=== PATIENT | male | born 1935 | race African-American/Black ===

== ENCOUNTER 2019-12-04 21:13 | Inpatient (IN) | payer OTHER, SELFPAY ==
[2019-12-04] VITALS (13 sets, daily range): BP systolic 66–117; BP diastolic 56–75; PULSE 103–138; RESP 16–33; TEMP 36.8–37.7; O2SAT 86–100
--- NOTE | ~2019-12-04 | XR_ITS ---
XR chest ET placement 12/04/2019 23:50 Indication: Shortness of breath. Endotracheal tube placement. Procedure: AP portable chest Comparison: 12/04/2019 Findings: Endotracheal tube tip 4.7 cm above the steffi. Right IJ central line tip in the SVC. Bibasi lar airspace disease, compatible with pneumonia. No pleural effusion or pneumothorax. Impression: 1: Persistent unchanged bibasilar airspace disease, compatible with pneumonia, right greater than lef t. Reviewed, dictated and finalized at location A. Impression: 1: Persistent unchanged bibasilar airspace disease, compatible with pneumonia, right greater than left.
--- NOTE | ~2019-12-04 | XR_ITS ---
EXAMINATION: XR chest 1V portable INDICATION: Acute respiratory failure, pneumonia TECHNIQUE: Portable AP chest at 0516 hours COMPARISON: 12/08/2019 FINDINGS: Endotracheal tube is approximately 4.2 cm above the steffi. A right internal jugular centra l venous catheter ends with its tip at the superior cavoatrial junction. Airspace opacities of the lo wer lung zones are slightly improved. There are stable airspace opacities of the right midlung zone. A small right pleural effusion is present. There is no pneumothorax. The cardiomediastinal silhouette is normal. IMPRESSION: 1. Stable airspace opacities of the right midlung zone and improving bibasilar airspace opacities, co nsistent with pneumonia. 2. Small right pleural effusion, stable. Reviewed, dictated and finalized at location A. IMPRESSION: 1. Stable airspace opacities of the right midlung zone and improving bibasilar airspace opacities, consistent with pneumonia. 2. Small right pleural effusion, stable.
--- NOTE | ~2019-12-04 | XR_ITS ---
EXAMINATION: XR chest 1V portable DATE: 12/08/2019 05:55 INDICATION: Pneumonia. Acute respiratory failure. TECHNIQUE: frontal view of the chest was obtained. COMPARISON: Chest radiograph dated 12/07/2019 FINDINGS: Endotracheal tube tip 4.8 cm above the steffi. Right internal jugular central venous catheter with di stal tip near the superior cavoatrial junction. Slight interval increase in opacities in the right mid to lower and left lower lung zones. Mild incre ase in a small right pleural effusion. No definitive left pleural effusion. Calcified nodules in righ t upper lung zone consistent with old granulomatous disease. No pneumothorax. Cardiomediastinal silho uette is normal. IMPRESSION: 1. Slight increase in lung disease in the right mid to lower and left lower lung zones consistent wit h pneumonia. 2. Slight increase in a small right pleural effusion. Reviewed, dictated and finalized at location A. IMPRESSION: 1. Slight increase in lung disease in the right mid to lower and left lower erika g zones consistent with pneumonia. 2. Slight increase in a small right pleural effusion.
--- NOTE | ~2019-12-04 | US_ITS ---
EXAMINATION: US arterial duplex LE DATE: 12/06/2019 15:00 INDICATION: Peripheral arterial disease. TECHNIQUE: Multiple grayscale and Doppler ultrasound images of the lower extremity arteries were obta ined. COMPARISON: None FINDINGS: Peak systolic velocities are 57 cm/s in right common femoral artery, 101 cm/s in the deep f emoral artery, 138 cm/s in proximal superficial femoral artery, 47 cm/s in mid superficial femoral ar [place], 50 cm/s in distal superficial femoral artery, 42 cm/s in popliteal artery, 43 cm/s in peroneal artery, 20 cm/s in posterior tibial artery, 20 cm/s in anterior tibial artery, and 18 cm/s in dorsali s pedis. Peak systolic velocities are 83 cm/s in left common femoral artery, 16 cm/s in the deep femoral arter y, 29 cm/s in proximal superficial femoral artery, 15 cm/s in mid superficial femoral artery, 14 cm/s in distal superficial femoral artery, 8 cm/s in popliteal artery, and 17 cm/s in peroneal artery. Th ere is no detectable flow in left posterior tibial artery, anterior tibial artery, and dorsalis pedis . IMPRESSION: 1. Increased pressure gradients in the superficial femoral arteries, consistent with arterial occlusi ve disease. No detectable flow in left posterior tibial artery, anterior tibial artery, and dorsalis pedis. Reviewed, dictated and finalized at location B. IMPRESSION: 1. Increased pressure gradients in the superficial femoral arteries, consistent with arterial occlusive disease. No detectable flow in left posterior tibial a rtery, anterior tibial artery, and dorsalis pedis.
--- NOTE | ~2019-12-04 | XR_ITS ---
EXAMINATION: XR chest 1V portable DATE: 12/07/2019 06:39 INDICATION: Pneumonia. Acute respiratory failure. TECHNIQUE: frontal view of the chest was obtained. COMPARISON: Chest radiograph dated 12/06/2019 FINDINGS: Persistent patchy airspace opacities in the right mid and lower lung zones. Improvement in opacities in the medial right lower lung zone. Small right pleural effusion. Bilateral skin folds project over the lungs. No pneumothorax. The cardiomediastinal silhouette is normal. IMPRESSION: 1. Opacities in the right mid to lower and left lower lung zones consistent with pneumonia with impro vement at the left lower lung zone. Line 2. Small right pleural effusion. Reviewed, dictated and finalized at location A. IMPRESSION: 1. Opacities in the right mid to lower and left lower lung zones consistent wit h pneumonia with improvement at the left lower lung zone. Line 2. Small right pleural effusion.
--- NOTE | ~2019-12-04 | XR_ITS ---
EXAMINATION: XR chest 1V portable EXAM DATE: 12/06/2019 08:30 INDICATION: Respiratory failure. Pneumonia. TECHNIQUE: Portable AP frontal chest x-ray was obtained. Comparison is made to prior examination from 10/03. FINDINGS: Endotracheal tube tip is 4-5 centimeters above the steffi (ideal range is between 2 to 5 cm ). There is a right-sided IJ venous line. There is extensive right lower lung zone, moderate left lower lung zone patchy ill-defined acute airs pace disease most consistent with infection, pneumonia. There are no sizable pleural effusions. Th ere is no pneumothorax suspected. Cardiomediastinal silhouette is normal. The bones and soft tissu es are unremarkable. There is no significant interval change compared to prior exam. IMPRESSION: 1. Line(s) and tube(s) in position. 2. Patchy bibasilar infection/pneumonia. Reviewed, dictated and finalized at location A.
--- NOTE | ~2019-12-04 | XR_ITS ---
XR chest port-a-cath/central 12/04/2019 22:08 Indication: Central line placement Procedure: AP portable chest Comparison: No prior studies for comparison. Findings: There is bibasilar airspace disease, compatible with pneumonia, right greater than left. Th e lungs are hyperinflated which is consistent with, but not diagnostic of chronic obstructive pulmona ry disease. Right IJ central line tip in the condyle aspect of the SVC. No pleural effusion or pneumo thorax. Acute osseous abnormality. Heart size is normal. No edema. Impression: 1: Bibasilar airspace disease, compatible with pneumonia. Reviewed, dictated and finalized at location A. Impression: 1: Bibasilar airspace disease, compatible with pneumonia.
--- NOTE | ~2019-12-04 | CT_ITS ---
EXAMINATION: CT brain wo con DATE: 12/08/2019 13:05 INDICATION: Mental status change TECHNIQUE: Computed tomography (CT) of the head was performed without intravenous contrast. Sagittal and coronal reconstructions were performed. The mA was adjusted according to patient size. Iterative reconstruction technique was employed. The dose-length product was 681.00 mGy-cm. COMPARISON: None FINDINGS: Encephalomalacia in the left occipital lobe with associated expected dilation of the occipital horn o f the left lateral ventricle consistent with chronic infarct. No acute intracranial hemorrhage, acute infarction or abnormal extra axial fluid collection. There is severe scattered white matter hypoatte nuation consistent with chronic small vessel ischemic disease. Symmetric prominence of the sulci and ventricles consistent with moderate age-appropriate diffuse cerebral volume loss. No mass/mass effec t. Changes of left intraocular lens replacement. Nonspecific increased density within the left globe. No inflammatory stranding within the surrounding orbital fat. Calcified drusen at the left optic dis cs. Mild mucosal thickening the left maxillary and bilateral ethmoid sinuses. Bilateral mastoid effus ions. Middle ear cavities are clear. Intracranial calcified cerebral atherosclerosis is noted. IMPRESSION: 1. No acute intracranial process. 2. Chronic left occipital lobe infarct. 3. Age-related changes including moderate diffuse volume loss and severe scattered white matter hypoa ttenuation consistent with chronic small vessel ischemic disease. 4. Nonspecific increased density within the left globe. Correlate with ophthalmic history. Reviewed, dictated and finalized at location A. IMPRESSION: 1. No acute intracranial process. 2. Chronic left occipital lobe infarct. 3. Age-related changes including moderate diffuse volume loss and severe scatte red white matter hypoattenuation consistent with chronic small vessel ischemic disease. 4. Nonspecific increased density within the left globe. Correlate with ophthalm ic history.
--- NOTE | ~2019-12-04 | US_ITS ---
EXAMINATION: US renal BI DATE: 12/05/2019 12:50 INDICATION: Acute renal injury. TECHNIQUE: Multiple ultrasound grayscale images of the kidneys were obtained. COMPARISON: None. FINDINGS: The right kidney measures 10.3 x 4.5 x 4.4 cm. 6.0 x 4.9 x 5.5 cm cyst at the upper pole of the right kidney. No hydronephrosis or stones identified in the right kidney. The majority of the left kidney is obscured by shadowing bowel gas. Small portion of the central left kidney can be visualized betwee n the shadowing bowel on the cine images with no evident hydronephrosis. The bladder is normal. IMPRESSION: 1. No hydronephrosis in the right kidney or visualized central portion of the largely obscured left kidney. 2. 6.0 cm right renal cyst. Reviewed, dictated and finalized at location A.
--- NOTE | ~2019-12-04 | XR_ITS ---
EXAMINATION: XR foot LT 2V DATE: 12/05/2019 13:37 INDICATION: Left heel ulcer. TECHNIQUE: 2 views of left foot were obtained. COMPARISON: None. FINDINGS: Bone alignment is normal. No fracture. There is diffuse osteopenia. There is mild osteoarth ritis of first metatarsophalangeal joint and some of the interphalangeal joints. There are enthesophy andrea at the posterior and plantar aspects of calcaneal tuberosity. There is an ulcer posterior to calc aneal tuberosity. IMPRESSION: 1. No specific evidence of osteomyelitis. Reviewed, dictated and finalized at location B.
--- NOTE | 2019-12-04 21:22 | ECG_ITS ---
Measurements Intervals [place] Rate: 136 P: 66 NM: 135 QRS: -10 QRSD: 86 T: 62 QT: 298 QTc: 448 Interpretive Statements SINUS TACHYCARDIA BASELINE WANDER- I, II, AVF, V1-V6 ABNORMAL ECG Electronically Signed On 12-05-2019 7:26:41 CDT by Chris Kaur D.O.
--- NOTE | 2019-12-04 21:36 | PC.NURSE ---
Unable to obtain IV access. DEBBIE Dwyer notified. DEBBIE Dwyer in room at this time for central line placement. Consent given by patient's son who is POA.
--- NOTE | 2019-12-04 21:44 | PCRCNOTE ---
CALLED TO ED 8 FOR PT IN RESPIRATORY DISTRESS. EMS ASSISTING WITH PT RESPIRATIONS VIA BVM. PT PLACED ON NRB WITH SPO2 91%. ABG ORDERED BUT WILL BE DELAYED DUE TO CENTRAL LINE PLACEMENT.
[2019-12-04] MEDS: SODIUM CHLORIDE 0.9% IV 2,000 ML 999 ML (21:45)
[2019-12-04] MEDS: NOREPINEPHRINE 8 MG/D5W 250 ML 8 MG/250 ML BAG 18.8 MG IV CONT (21:50)
--- NOTE | 2019-12-04 21:55 | PC.NURSE ---
Per EDRad Dwyer, begin Levophed at 10mcg/min.
--- NOTE | 2019-12-04 21:59 | ED.SOB ---
HPI - SOB/Dyspnea General Chief Complaint: Shortness of Breath/Dyspnea Stated Complaint: respiratory distress Time Seen by Provider: 12/04/19 21:22 History of Present Illness HPI Narrative: Patient is an 84-year-old male who presents the ER with decreased mental status and hypoxia from his long term. Patient was COVID swab 1 week ago and it was negative. He was found to be febrile this evening. EMS bagging patient in route. Upon arrival patient breathing on his own and moving his right side spontaneously. Patient has previous history of CVA. I have contacted patient's POA his son, he would like everything done including intubation if needed, CPR, and central line placement. At baseline patient can converse with others and follow commands but he is much more somnolent this evening. Related Data Home Medications Medication Instructions Recorded Confirmed aspirin [Aspir-81] 81 mg FEEDING TUBE DAILY 12/05/19 12/05/19 chlorhexidine gluconate 15 ml MUCOUS MEMBRANE BID 12/05/19 12/05/19 docusate sodium 50 mg PO DAILY 12/05/19 12/05/19 metoprolol tartrate 25 mg FEEDING TUBE DAILY 12/05/19 12/05/19 ldrdibev-gvy-amyzniq gluconate 15 ml FEEDING TUBE DAILY 12/05/19 12/05/19 [Centrum] nystatin 5 ml PO QID 12/05/19 12/05/19 pantoprazole [Protonix] 40 mg FEEDING TUBE DAILY 12/05/19 12/05/19 polyethylene glycol 3350 17 g FEEDING TUBE DAILY 12/05/19 12/05/19 pravastatin 10 mg FEEDING TUBE DAILY 12/05/19 12/05/19 sennosides [Senna Lax] 8.6 mg FEEDING TUBE BID 12/05/19 12/05/19 thiamine HCl (vitamin B1) 100 mg FEEDING TUBE DAILY 12/05/19 12/05/19 Allergies Allergy/AdvReac Type Severity Reaction Status Date / Time No Known Allergies Allergy Verified 12/04/19 22:51 Review of Systems Review of Systems: ROS unobtainable: Yes unobtainable due to medical condition [facility] Past Medical History Medical History (Updated 12/05/19 @ 03:29 by Thor Dwyer MD) Atrial fibrillation CVA (cerebral vascular accident) Dysphagia Essential hypertension GERD without esophagitis Hyperlipidemia Peripheral vascular disease with limb ischemia but this was managed without surgical intervention Severe protein-calorie malnutrition Surgical History Surgical History (Updated 12/05/19 @ 01:42 by Licha Virk DO) History of left hip hemiarthroplasty Family History Family History Other Unknown family medical history Social History Social History (Updated 12/05/19 @ 01:45 by Licha Virk DO) Smoking status: Unknown if ever smoked Alcohol intake: never Substance use: never Living arrangements: long term Additional living arrangements comments: patient is currently residing had [facility]. Gender identity (if verbalized by the patient): Male Spiritual care concerns: No Exam Narrative: Exam Narrative: GENERAL: ill-appearing, well-nourished, and in moderate distress. HEAD: Normocephalic, atraumatic. EYES: EOMI, Scarred left pupil, reactive right pupil. ENT: Dry mucous membrane. CHEST: Diminished throughout and tachypneic. HEART: Tachycardic and regular. Thready peripheral pulses. ABDOMEN: Soft, nontender, nondistended. EXTREMITIES: Profound weakness on the left side compared to the right. No edema. SKIN: Warm, dry, no rash. NEURO: Awake and alert, localizes to pain. Course Reevaluation(s) Reevaluation #1: Central line placed. Will aggressively hydrate. Date: 12/04/19 Time: 22:00 Reevaluation #2: O2 sat trending down. Decision made to intubate as pt still on NRB at 100%. Accepted to ICU by Dr. Trotter. Pt received rocephin and azithromycin. New low BP at 74/53 mmHg after intubation. If it remains low we will add vasopressin to the levophed already running. Date: 12/04/19 Time: 23:46 Reevaluation #3: Admit to ICU. Patient responding well to addition of vasopressin and IV sodium bicarb. D/c propofol due to low pressures and switch to verded
[2019-12-04 22:20] LABS: Alveolar/Arterial O2 Gradient 620.1 mmHg; Base Excess ABG -13.4 mEq/l (+/-2.0); Carboxyhemoglobin 0.2 % THb (0-2.0); Fractional Inspired Oxygen 100 %; HCO3 ABG 11.1 mEq/l (22.0-26.0); Methemoglobin ABG 0.4 %THb (0-1.5); Oxygen Content ABG 16.6 %vol (16.0-22.0); Oxygen Saturation ABG 89.8 % (95.0-100.0); Oxyhemoglobin 88.5 % THb (90.0-100.0); PO2 ABG 61.6 mmHg (80.0-100.0); PO2 FiO2 Ratio Arterial Blood 0.62 %; Reduced Hemoglobin 10.9 %THb (0-5.0); Total Hemoglobin 13.3 g/dL (12.0-18.0)
[2019-12-04 22:21] LABS: Device NON-REBREATHER MASK; PCO2 ABG 23.2 mmHg (35.0-45.0); Site Drawn RIGHT BRACHIAL; pH ABG 7.298 (7.350-7.450)
[2019-12-04 22:29] LABS: Hematocrit 40.1 % (42.0-52.0); Hemoglobin 12.5 g/dL (14.0-18.0); Mean Corpuscular HGB Conc 31.2 g/dl (32-36); Mean Corpuscular Hemoglobin 27.4 pg (26-34); Mean Corpuscular Volume 87.9 fl (80-100); Mean Platelet Volume 9.8 fl (7.4-10.4); Platelet Count Result 423 k/mm3 (150-375); Red Blood Count 4.56 M/mm3 (4.6-6.20); Red Cell Distribution Width 16.4 % (11.5-14.5); White Blood Count 4.3 K/mm3 (4.5-10.0)
[2019-12-04 22:43] LABS: INR 1.5; Partial Thromboplastin Time 28.6 SECONDS (22.3-36.8); Prothrombin Time 17.3 Seconds (11.1-14.7)
[2019-12-04 22:44] LABS: Anion Gap 20 mmol/L (8-16); Blood Urea Nitrogen 51 mg/dL (9-20); CRP 7.7 mg/dL (<1.0); Calcium 9.3 mg/dL (8.4-10.2); Carbon Dioxide 15 mmol/L (22-30); Chloride 106 mmol/L (98-107); Estimated Glomerular Filt Rate 27; Glucose 91 mg/dL (75-110); Potassium 4.2 mmol/L (3.4-5.0); Sodium 141 mmol/L (137-145)
[2019-12-04 22:46] LABS: Lactic Acid Reflex 10.6 mmol/L (0.7-2.1)
--- NOTE | 2019-12-04 22:49 | PC.NURSE ---
Patient now beginning to have urine output in osorio catheter.
[2019-12-04 22:50] LABS: NT Pro B Type Natriuretic Pept 4010 PG/ML (5-100)
[2019-12-04 22:52] LABS: Band Neutrophils Percent 29 % (0-6); Lymphocytes Absolute Manual 0.47 K/mm3 (1.1-4.5); Monocytes Percent Manual 14 % (3-9); Neutrophils Absolute Manual 3.22 K/mm3 (1.3-6.7); Neutrophils Percent Manual 46 % (46-73); Total Cells Counted 100
[2019-12-04 22:53] LABS: Anisocytosis 2+ (NORMAL)
[2019-12-04] MEDS: SODIUM CHLORIDE 0.9% IV 500 ML 999 ML (22:53)
--- NOTE | 2019-12-04 22:55 | PC.NURSE ---
Patient given 2.4L NS bolus.
--- NOTE | 2019-12-04 23:32 | PC.NURSE ---
Patient began to weaned down from O2 per EDP Reymundo verbal order read-back. Patient was 95% on 10L via non-rebreather. Patient's O2 dropped to 70%. Patient having difficulty clearing secretions. EDP Reymundo notified. EDP in room at this for intubation.
--- NOTE | 2019-12-04 23:35 | PC.NURSE ---
Per EDP Reymundo give 100mg succinylcholine and 30mg Etomidate IVP for intubation. 2336 - good color change, equal rise and fall of chest, 26 at the lip. Size 7.5 ETT used.
[2019-12-04 23:38] LABS: Add Urine Microscopic? YES; Appearance Urine Cloudy (Clear); Bacteria Urine Trace /hpf; Bilirubin Urine Negative (Negative); Blood Urine 3+ (Negative); Color Urine Amber (Yellow); Glucose Urine UA Negative (Negative); Hyaline Casts Urine 50+ /lpf; Ketones Urine Negative (Negative); Leukocyte Esterase Ur Negative LEU/UL (Negative); Mucus Urine Moderate /lpf; Nitrate Urine Negative (Negative); Protein Urine 2+ mg/dL (Negative); RBC Urine >75 /hpf (0-2); Specific Grav Ur 1.018 (1.001-1.035); Squamous Epithelial Cell Urine Moderate /hpf (Few)
[2019-12-04] MEDS: PROPOFOL IV EMULSION 100 ML 2.4 MG IV CONT (23:40)
[2019-12-05] VITALS (64 sets, daily range): BP systolic 72–158; BP diastolic 49–94; PULSE 79–198; RESP 15–22; TEMP 35.9–39.4; O2SAT 92–100; BMI 19.2
--- NOTE | 2019-12-05 00:05 | PM.IMHP ---
H&P: HPI History of Present Illness Date/Time: 12/05/19 00:05 Chief complaint: Hypoxia, fever, altered mental status Narrative: Patient was seen and examined in the ER. Conrado Batres is a 84 year old maleWith a past medical history of CVA, dysphagia, atrial fibrillation and essential hypertension who presented to the ER from [facility] with respiratory distress and altered mental status. Nursing staff went for routine rounds and found the patient with oxygen saturations of 60% on room air. The patient was being bagged in route to the ER. The patient was only responding to painful stimuli. Patient's temperature was a 103? on EMS evaluation. The patient's blood pressure on arrival to the ER was 66/56. A central line was placed by ER staff. Patient was initiated on pressor therapy at the time of my evaluation the patient was on Levophed at 15 and blood pressures were in the low 70s. Instructed the ER nurse to increase the Levophed to 30 and the patient had just been started on vasopressin at 0.02 which was increased to 0.04. Repeat ABG was performed which demonstrated worsening metabolic acidosis. I ordered 2 amps of sodium bicarb. After these measures the patient's repeat blood pressure was in the 160 systolic in the patient's heart rate had improved from the 1 teens to 120s down to 100. The patient's Levophed was decreased down to 25 at patient's repeat blood pressure was in the 150 systolic. The patient is evidently at [facility] for acute rehab following a syncopal episode resulting in fall, rhabdomyolysis and left femoral neck fracture. The patient was admitted [facility] 10/09/2019. The patient had COVID-19 testing 1 week ago at the assisted that was negative. Source of information is assisted records and ER records. Review of Systems Review of Systems: ROS unobtainable: Yes unobtainable due to endotracheal tube PMFSH Past Medical History Medical History (Updated 12/05/19 @ 01:59 by Licha Virk DO) Atrial fibrillation CVA (cerebral vascular accident) Dysphagia Essential hypertension GERD without esophagitis Hyperlipidemia Peripheral vascular disease with limb ischemia but this was managed without surgical intervention Severe protein-calorie malnutrition Surgical History Surgical History (Updated 12/05/19 @ 01:42 by Licha Virk DO) History of left hip hemiarthroplasty Family History Family History Other Unknown family medical history Social History Social History (Updated 12/05/19 @ 01:45 by Licha Virk DO) Smoking status: Unknown if ever smoked Alcohol intake: unknown Substance use: unknown Living arrangements: assisted Additional living arrangements comments: patient is currently residing had [facility]. Meds Home Medications and Allergies Allergies Allergy/AdvReac Type Severity Reaction Status Date / Time No Known Allergies Allergy Verified 12/04/19 22:51 Vital Signs Vital Signs - 24 hr 12/04/19 21:12 12/04/19 21:33 12/04/19 21:45 Temperature 98.3 F Pulse Rate 134 H 129 H Respiratory Rate 31 H 33 H Blood Pressure 78/68 L 66/56 L Pulse Oximetry 91 89 L 87 L 12/04/19 21:50 12/04/19 22:20 12/04/19 22:30 Temperature 99.9 F H Pulse Rate 135 H 129 H 125 H Respiratory Rate 33 H 32 H Blood Pressure 76/60 L 85/67 L 117/75 Pulse Oximetry 86 L 97 12/04/19 23:02 12/04/19 23:12 12/04/19 23:38 Temperature Pulse Rate 113 H 103 H Respiratory Rate 16 20 Blood Pressure 112/73 93/68 L Pulse Oximetry 100 95 100 12/04/19 23:51 12/04/19 23:59 Temperature Pulse Rate 103 H 103 H Respiratory Rate 21 H Blood Pressure 75/57 L Pulse Oximetry 96 94 Exam Narrative: Exam Narrative: PHYSICAL EXAM: WEIGHT BMI General: acutely ill-appearing, frail, cachectic HEENT: mucous membranes are dry, ET tube present, teeth are bro
[2019-12-05] MEDS: VASOPRESSIN INJ 100 UNITS in DEXTROSE 5% 95 ML IV CONT ×2 (00:10→07:30)
[2019-12-05 00:27] LABS: Base Excess ABG -14.8 mEq/l (+/-2.0); Carboxyhemoglobin 0.3 % THb (0-2.0); Fractional Inspired Oxygen 100 %; HCO3 ABG 11.7 mEq/l (22.0-26.0); Methemoglobin ABG 0.6 %THb (0-1.5); Oxygen Content ABG 15.6 %vol (16.0-22.0); Oxygen Saturation ABG 97.5 % (95.0-100.0); Oxyhemoglobin 96.1 % THb (90.0-100.0); PCO2 ABG 29.4 mmHg (35.0-45.0); PO2 ABG 116.2 mmHg (80.0-100.0); PO2 FiO2 Ratio Arterial Blood 1.16 %; Total Hemoglobin 11.4 g/dL (12.0-18.0)
[2019-12-05 00:29] LABS: Arterial Blood Gas PEEP 5 cmH2O; Arterial Blood Gas Vent Mode CMV; Arterial Blood Gas Ventilator rate 18 /MIN; Device VENTILATOR; Site Drawn RIGHT BRACHIAL; pH ABG 7.216 (7.350-7.450)
[2019-12-05 00:30] LABS: Arterial Blood Gas Tidal Volume 400 ml
[2019-12-05] MEDS: SODIUM BICARBONATE 8.4% 50 MEQ/50 ML VIAL IV PUSH ×2 (00:39)
--- NOTE | 2019-12-05 00:43 | PC.NURSE ---
Correction on Vasopressin titration: dose increased to 2.4mL/hr, not 24mL/hr.
--- NOTE | 2019-12-05 00:45 | PC.NURSE ---
Per Dr. Virk via verbal order read back, increase Levophed dose to 30mcg/min.
[2019-12-05 01:26] LABS: Reflex Lactic Acid Yes or No Add Lactic
[2019-12-05 02:34] LABS: Hematocrit 34.9 % (42.0-52.0); Hemoglobin 10.9 g/dL (14.0-18.0); Mean Corpuscular HGB Conc 31.2 g/dl (32-36); Mean Corpuscular Hemoglobin 27.1 pg (26-34); Mean Corpuscular Volume 86.8 fl (80-100); Mean Platelet Volume 9.4 fl (7.4-10.4); Platelet Count Result 342 k/mm3 (150-375); Red Blood Count 4.02 M/mm3 (4.6-6.20); Red Cell Distribution Width 16.2 % (11.5-14.5)
[2019-12-05 02:59] LABS: Lactic Acid 6.9 mmol/L (0.7-2.1)
[2019-12-05 03:00] LABS: Alanine Aminotransferase 49 U/L (4-50); Albumin Level 2.9 g/dL (3.5-5.1); Alkaline Phosphatase 104 U/L (38-126); Anion Gap 16 mmol/L (8-16); Aspartate Amino Transferase 89 U/L (17-59); Bilirubin,Total 0.4 mg/dL (0.2-1.3); Blood Urea Nitrogen 50 mg/dL (9-20); Calcium 7.7 mg/dL (8.4-10.2); Carbon Dioxide 19 mmol/L (22-30); Chloride 107 mmol/L (98-107); Estimated CRCL calculation 20 ml/min; Estimated Glomerular Filt Rate 37; Glucose 126 mg/dL (75-110); Potassium 3.7 mmol/L (3.4-5.0); Sodium 142 mmol/L (137-145)
[2019-12-05] MEDS: SODIUM CHLORIDE 0.9% IV 1,000 ML 125 ML IV CONT (03:09)
[2019-12-05 03:37] LABS: Anisocytosis 1+ (NORMAL); Band Neutrophils Percent 10 % (0-6); Lymphocytes Absolute Manual 0.36 K/mm3 (1.1-4.5); Monocytes Absolute Manual 0.16 K/mm3 (0.1-0.90); Monocytes Percent Manual 4 % (3-9); Neutrophils Absolute Manual 3.48 K/mm3 (1.3-6.7); Neutrophils Percent Manual 77 % (46-73); Platelet Estimate Adequate (Adequate); Total Cells Counted 100
[2019-12-05 04:26] LABS: Base Excess ABG -8.9 mEq/l (+/-2.0); Carboxyhemoglobin 0.2 % THb (0-2.0); Fractional Inspired Oxygen 80 %; HCO3 ABG 16.9 mEq/l (22.0-26.0); Methemoglobin ABG 0.5 %THb (0-1.5); Oxygen Content ABG 16.3 %vol (16.0-22.0); Oxygen Saturation ABG 96.2 % (95.0-100.0); Oxyhemoglobin 94.4 % THb (90.0-100.0); PCO2 ABG 35.9 mmHg (35.0-45.0); PO2 ABG 91.7 mmHg (80.0-100.0); PO2 FiO2 Ratio Arterial Blood 1.15 %; Reduced Hemoglobin 4.9 %THb (0-5.0); Total Hemoglobin 12.2 g/dL (12.0-18.0)
[2019-12-05 04:28] LABS: Site Drawn RIGHT RADIAL
[2019-12-05 04:29] LABS: Arterial Blood Gas PEEP 5 cmH2O; Arterial Blood Gas Tidal Volume 400 ml; Arterial Blood Gas Vent Mode CMV; Arterial Blood Gas Ventilator rate 18 /MIN; Device VENTILATOR; Modified Allen's Test Unable to perform
[2019-12-05] MEDS: NOREPINEPHRINE 8 MG/D5W 250 ML 8 MG/250 ML BAG 46.9 MG IV CONT ×2 (04:30→10:41)
[2019-12-05] MEDS: SODIUM BICARBONATE 8.4% 50 MEQ/50 ML VIAL 100 MEQ IV PUSH (05:03)
[2019-12-05 05:28] LABS: Lactic Acid Reflex 5.1 mmol/L (0.7-2.1)
[2019-12-05] MEDS: AMIODARONE 150 MG/D5W 100 ML 150 MG/100 ML BAG 600 MG IV CONT (08:34)
[2019-12-05] MEDS: AMIODARONE 360 MG/D5W 200 ML 360 MG/200 ML BAG 33.3 MG IV CONT (08:42)
[2019-12-05] MEDS: HEPARIN SODIUM 5,000 UNITS/ML VIAL 5000 UNITS SUB-Q ×3 (08:53→21:05)
[2019-12-05] MEDS: PANTOPRAZOLE SODIUM IV 40 MG VIAL IV PUSH (08:53)
[2019-12-05] MEDS: SODIUM BICARBONATE 8.4% 150 MEQ in WATER, STERILE FOR INJECTION 950 ML 75 MEQ IV CONT (08:56)
--- NOTE | 2019-12-05 09:43 | WPDCNINT ---
Assessment and Plan Assessment and plan (1) Acute respiratory failure with hypoxia: Code(s): J96.01 - Acute respiratory failure with hypoxia Status: Acute Assessment and Plan: acute respiratory failure likely related to pneumonia, possible COVID-19 - patient was intubated in the ER on 12/04/2019 - on CMV mode of ventilation, ABGs and chest x-ray reviewed, will increase tidal volume to 450 mL, rate to 20. - continue cefepime and vancomycin - Continue bronchodilators - on fentanyl and Versed infusion for sedation, maintain RASS of 0 to -2, daily sedation vacation (2) Septic shock: Code(s): A41.9 - Sepsis, unspecified organism; R65.21 - Severe sepsis with septic shock Status: Acute Assessment and Plan: septic shock related to hypovolemia, malnourishment, infection, pneumonia - patient adequately fluid-resuscitated - continue bicarb infusion at this time - patient on cefepime and vancomycin - blood and sputum cultures have been obtained and pending - will order urine Legionella and urine pneumococcal antigen (3) Community acquired pneumonia: Code(s): J18.9 - Pneumonia, unspecified organism Status: Acute Assessment and Plan: patient likely with community-acquired pneumonia, on antibiotics as above - will add Pulmozyme (4) BECKY (acute kidney injury): Code(s): N17.9 - Acute kidney failure, unspecified Status: Acute Assessment and Plan: acute kidney injury likely related to hypovolemia, septic shock, hypotension, pneumonia - patient adequately fluid-resuscitated with improvement in urine output as well as creatinine - continue maintenance IV fluids - lactic acid remains elevated, will trend lactic levels - will obtain renal ultrasound - continue to monitor renal function, electrolytes and urine output (5) Decubitus ulcer of left foot, unstageable: Code(s): L89.890 - Pressure ulcer of other site, unstageable Status: Acute Assessment and Plan: wounds on bilateral hips, coccyx, left heel - wound care to evaluate and manage - will obtain left foot x-ray to evaluate for gas, osteomyelitis (6) Person under investigation for COVID-19: Code(s): Z20.828 - Contact with and (suspected) exposure to other viral communicable diseases Status: Acute Assessment and Plan: patient febrile in the ED, bilateral infiltrates right greater than left - SARS-CoV-2 PCR has been obtained and pending - patient was negative for COVID-19 a week prior to admission at the correction - continue droplet, airborne, contact precautions/isolation (7) DVT prophylaxis: Code(s): Z29.9 - Encounter for prophylactic measures, unspecified Status: Acute Assessment and Plan: started patient on subcutaneous heparin (8) Dietary counseling and surveillance: Code(s): Z71.3 - Dietary counseling and surveillance Status: Acute Assessment and Plan: will start trickle tube feeds through PEG tube to maintain gastrointestinal integrity stress ulcer prophylaxis: Protonix Additional Plan will update family code status: Full code critical care time spent: 47 minutes Due to a high probability of clinically significant, life threatening deterioration, the patient required my highest level of preparedness to intervene emergently and I personally spent this critical care time directly and personally managing the patient. This critical care time included obtaining a history; examining the patient; pulse oximetry; ordering and review of studies; arranging urgent treatment with development of a management plan; evaluation of patient's response to treatment; frequent reassessment; and discussions with other providers. It was exclusive of separately billable procedures and treating other patients and teaching time. Please see Assessment and Plan section and the rest of the note for further information on patient assessment and treatme
[2019-12-05 09:53] LABS: Alveolar/Arterial O2 Gradient 254.4 mmHg; Base Excess ABG -5.5 mEq/l (+/-2.0); Device VENTILATOR; Fractional Inspired Oxygen 50 %; HCO3 ABG 19.6 mEq/l (22.0-26.0); Oxygen Saturation ABG 90.3 % (95.0-100.0); Oxyhemoglobin 87.3 % THb (90.0-100.0); PCO2 ABG 36.7 mmHg (35.0-45.0); PO2 ABG 60.8 mmHg (80.0-100.0); PO2 FiO2 Ratio Arterial Blood 1.22 %; Site Drawn RIGHT BRACHIAL; Total Hemoglobin 12.2 g/dL (12.0-18.0); pH ABG 7.345 (7.350-7.450)
[2019-12-05 09:54] LABS: Arterial Blood Gas PEEP 5 cmH2O; Arterial Blood Gas Tidal Volume 450 ml; Arterial Blood Gas Vent Mode CMV; Arterial Blood Gas Ventilator rate 20 /MIN
--- NOTE | 2019-12-05 11:11 | PCDIET ---
MD ordered to start trickle tube feedings at 10-15mL/hr. Vital 1.2 at goal of 15mL/hr x 22 hours/day will provide 396kcal, 25g protein and 267mL free water. Agree with 30mL water flush every 4 hours at this time.
[2019-12-05 11:23] LABS: Lactic Acid Reflex 6.9 mmol/L (0.7-2.1)
[2019-12-05] MEDS: AMIODARONE 360 MG/D5W 200 ML 360 MG/200 ML BAG 16.7 MG IV CONT (14:04)
[2019-12-05 14:07] LABS: Reflex Lactic Acid Yes or No Add Lactic
[2019-12-05 14:50] LABS: Lactic Acid 6.5 mmol/L (0.7-2.1)
[2019-12-05 14:54] LABS: SARS-CoV-2 RNA PCR Negative
[2019-12-05] MEDS: SODIUM CHLORIDE 0.9% IV 500 ML IV CONT (16:25)
[2019-12-05] MEDS: NOREPINEPHRINE 8 MG/D5W 250 ML 8 MG/250 ML BAG 28.1 MG IV CONT (16:27)
--- NOTE | 2019-12-05 18:53 | PCRCNOTE ---
Window of time for administration has passed. See next scheduled administration.
[2019-12-05] MEDS: ALBUTEROL SULFATE NEB 2.5 MG/0.5 ML INH INHALATION (21:35)
[2019-12-05] MEDS: IPRATROPIUM BR 0.02% INH SOLN 0.5 MG/2.5 ML VIAL INHALATION (21:35)
[2019-12-06] VITALS (41 sets, daily range): BP systolic 74–111; BP diastolic 53–77; PULSE 86–147; RESP 15–22; TEMP 36.2–37.7; O2SAT 92–99
[2019-12-06] MEDS: SODIUM BICARBONATE 8.4% 150 MEQ in WATER, STERILE FOR INJECTION 950 ML 75 MEQ IV CONT (00:39)
[2019-12-06] MEDS: AMIODARONE 360 MG/D5W 200 ML 360 MG/200 ML BAG 16.7 MG IV CONT ×2 (00:40→08:37)
[2019-12-06] MEDS: NOREPINEPHRINE 8 MG/D5W 250 ML 8 MG/250 ML BAG 28.1 MG IV CONT (01:09)
[2019-12-06] MEDS: AMIODARONE 150 MG/D5W 100 ML 150 MG/100 ML BAG 600 MG IV CONT ×2 (02:20→17:50)
[2019-12-06] MEDS: AMIODARONE 360 MG/D5W 200 ML 360 MG/200 ML BAG 33.3 MG IV CONT ×2 (02:21→20:47)
[2019-12-06] MEDS: IPRATROPIUM BR 0.02% INH SOLN 0.5 MG/2.5 ML VIAL INHALATION ×4 (02:29→20:09)
[2019-12-06] MEDS: ALBUTEROL SULFATE NEB 2.5 MG/0.5 ML INH INHALATION ×4 (02:29→20:09)
[2019-12-06] MEDS: SODIUM CHLORIDE 0.9% IV 250 ML 999 ML IV CONT (04:12)
[2019-12-06 05:03] LABS: Alveolar/Arterial O2 Gradient 238.9 mmHg; Base Excess ABG 2.5 mEq/l (+/-2.0); Carboxyhemoglobin 0.2 % THb (0-2.0); Device VENTILATOR; Fractional Inspired Oxygen 50 %; HCO3 ABG 26.9 mEq/l (22.0-26.0); Methemoglobin ABG 0.4 %THb (0-1.5); Oxygen Content ABG 13.9 %vol (16.0-22.0); Oxygen Saturation ABG 94.9 % (95.0-100.0); PCO2 ABG 40.9 mmHg (35.0-45.0); PO2 ABG 71.6 mmHg (80.0-100.0); PO2 FiO2 Ratio Arterial Blood 1.43 %; Reduced Hemoglobin 6.4 %THb (0-5.0); Site Drawn RIGHT BRACHIAL; Total Hemoglobin 10.6 g/dL (12.0-18.0); pH ABG 7.436 (7.350-7.450)
[2019-12-06 05:04] LABS: Arterial Blood Gas PEEP 5 cmH2O; Arterial Blood Gas Tidal Volume 450 ml; Arterial Blood Gas Vent Mode CMV; Arterial Blood Gas Ventilator rate 20 /MIN
[2019-12-06 05:26] LABS: Hematocrit 29.1 % (42.0-52.0); Hemoglobin 9.3 g/dL (14.0-18.0); Mean Corpuscular Hemoglobin 27.7 pg (26-34); Mean Corpuscular Volume 86.6 fl (80-100); Mean Platelet Volume 9.8 fl (7.4-10.4); Platelet Count Result 243 k/mm3 (150-375); Red Blood Count 3.36 M/mm3 (4.6-6.20); Red Cell Distribution Width 16.2 % (11.5-14.5); White Blood Count 7.7 K/mm3 (4.5-10.0)
[2019-12-06 05:41] LABS: Anion Gap 9 mmol/L (8-16); Blood Urea Nitrogen 42 mg/dL (9-20); Calcium 6.7 mg/dL (8.4-10.2); Carbon Dioxide 29 mmol/L (22-30); Chloride 97 mmol/L (98-107); Estimated CRCL calculation 33 ml/min; Estimated Glomerular Filt Rate > 60; Glucose 82 mg/dL (75-110); Magnesium 1.8 mg/dL (1.6-2.3); Phosphorus 3.3 mg/dL (2.5-4.5); Potassium 3.2 mmol/L (3.4-5.0); Sodium 135 mmol/L (137-145)
[2019-12-06] MEDS: DIGOXIN INJ 250 MCG/ML 2 ML AMP (*BKC) IV PUSH (05:41)
[2019-12-06] MEDS: HEPARIN SODIUM 5,000 UNITS/ML VIAL 5000 UNITS SUB-Q (05:43)
[2019-12-06 05:49] LABS: Lactic Acid 4.4 mmol/L (0.7-2.1)
[2019-12-06] MEDS: PANTOPRAZOLE SODIUM IV 40 MG VIAL IV PUSH (08:17)
[2019-12-06 08:32] LABS: Glucose Point of Care 41 (65-105)
[2019-12-06 08:32] LABS: Glucose Point of Care 37 (65-105)
[2019-12-06] MEDS: SODIUM BICARBONATE 8.4% 150 MEQ in DEXTROSE 5% 1,000 ML 950 ML 75 MEQ IV CONT (09:26)
[2019-12-06] MEDS: DEXTROSE 50% 25 GM/50 ML SYRINGE IV PUSH (09:26)
[2019-12-06] MEDS: MAGNESIUM SULF 2 GM/WATER 50ML 2 GM/50 ML BAG IVPB (09:27)
[2019-12-06 09:35] LABS: Glucose Point of Care 102 (65-105)
[2019-12-06 09:35] LABS: Glucose Point of Care 62 (65-105)
[2019-12-06 10:52] LABS: Hematocrit 30.8 % (42.0-52.0); Hemoglobin 9.6 g/dL (14.0-18.0); Mean Corpuscular HGB Conc 31.2 g/dl (32-36); Mean Corpuscular Hemoglobin 27.2 pg (26-34); Mean Corpuscular Volume 87.3 fl (80-100); Mean Platelet Volume 10.2 fl (7.4-10.4); Platelet Count Result 240 k/mm3 (150-375); Red Blood Count 3.53 M/mm3 (4.6-6.20); Red Cell Distribution Width 16.4 % (11.5-14.5); White Blood Count 10.2 K/mm3 (4.5-10.0)
--- NOTE | 2019-12-06 10:59 | PCDIET ---
Nutrition Follow-Up Complete: Nutrition Diagnosis: Inadequate infusion of enteral nutrition related to critical illness as evidenced by NPO status. Nutrition Goal: Patient to meet estimated nutritional needs. Goal in progress. Patient tolerating Vital 1.2 at 15mL/hr. MD ordered to increase rate toward goal of 65mL/hr which provides 1716kcal and 107g protein daily. Last recorded weight is 58.8 kg which is stable. Bowel Motility: No documented BM yet. Labs Reviewed: Hgb (9.3), Hct (29.1), Glu (37), BUN (42), K (3.2), Ca (6.7) Meds Noted: Albuterol, Cefepime, Fentanyl, Atrovent, Versed, Vasopressin, Vancomycin, KCl, Protonix, Levophed, D5/150mEq Sodium Bicarbonate at 75mL/hr Additional Notes: Recommend checking albumin level for calcium correction and replacing, if medically appropriate. Left heel with stasis ulcer. Right hip and buttock also with ulcers. Above tube feeding goal will provide 1.8g/kg protein. Nutrition Monitoring and Evaluation: Follow up every Monday/Monday. Follow daily in ICU rounds.
[2019-12-06 11:12] LABS: INR 1.7; Prothrombin Time 19.5 Seconds (11.1-14.7)
[2019-12-06 11:13] LABS: Partial Thromboplastin Time 64.3 SECONDS (22.3-36.8)
[2019-12-06] MEDS: HEPARIN SOD/D5W 100 UNITS/ML 25,000 UNITS/250 ML BAG 11 UNITS IV CONT (11:23)
[2019-12-06] MEDS: NOREPINEPHRINE 8 MG/D5W 250 ML 8 MG/250 ML BAG 22.5 MG IV CONT (11:24)
[2019-12-06] MEDS: HEPARIN SODIUM 5,000 UNITS/ML VIAL 4500 UNITS IV PUSH (11:26)
--- NOTE | 2019-12-06 12:45 | PM.CNCAR ---
Assessment and Plan Assessment and plan (1) Decubitus ulcer of left foot, unstageable: Code(s): L89.890 - Pressure ulcer of other site, unstageable Status: Acute Assessment and Plan: He has left ankle ulcer with necrotic tissue, and a dark demarcation indicative of chronic necrosis, and underlying gangrene, he seems to have severe peripheral vascular disease but does not seem to be acute most likely is chronic with chronic ulcer. His popliteal pulse on the left side is absent indicating femoral artery disease. Obviously with his other conditions the only possible treatment that may help his aspirin and heparin for the time being, and considering further imaging to evaluate location of his worse disease, to consider further treatment in the future. In the future whenever he is otherwise okay after he recovers his sepsis and acute events, one would consider further evaluation, definitely he will need some amputation, but in the event that there is any possible revascularization would improve his chances of less tissue loss and less amputation. (2) Acute renal failure: Qualifiers: Acute renal failure type: with acute tubular necrosis Qualified Code(s): N17.0 - Acute kidney failure with tubular necrosis Code(s): N17.9 - Acute kidney failure, unspecified Status: Acute (3) Septic shock: Code(s): A41.9 - Sepsis, unspecified organism; R65.21 - Severe sepsis with septic shock Status: Acute (4) Acute respiratory failure with hypoxia: Code(s): J96.01 - Acute respiratory failure with hypoxia Status: Acute (5) Peripheral vascular disease: Code(s): I73.9 - Peripheral vascular disease, unspecified Status: Acute Assessment and Plan: He seems to have chronic severe peripheral vascular disease more so on the left side with possible occlusion of left SFA. At this time he has other significant comorbidities, so there is no sense of doing any intervention or any testing until he is otherwise okay. Additional Plan Thank you for allowing me to participate in this patient's care, I will be following up with you. Please do not hesitate to call me for any other inquiry History of Present Illness History of Present Illness Consult date/time: 12/06/19 12:45 84 years old gentleman who came from residential with sepsis and pneumonia, noted to have gangrenous left ankle, with ulcer, I was asked to see him for possible treatment for that. No history is available now but from residential record indicates that patient had known had a left heel ulcer, and been monitored but no treatment been rendered for that as far as procedural or surgical intervention. The patient currently is intubated ventilated most of the history was taken from the residential record and from the nursing staff here. The patient is an with sepsis now, the source is possible pneumonia. he seemed to be septic, with elevated lactate level, royer has abnormal chest x-ray with infiltrate suggestive of pneumonia Reason For Visit: Hypoxia, fever, altered mental status Review of Systems Review of Systems: ROS unobtainable: Yes unobtainable due to endotracheal tube PMFSH Past Medical History Medical History Atrial fibrillation CVA (cerebral vascular accident) Dysphagia Essential hypertension G tube feedings GERD without esophagitis Hyperlipidemia Peripheral vascular disease with limb ischemia but this was managed without surgical intervention Severe protein-calorie malnutrition Surgical History Surgical History Gastrostomy tube in place History of left hip hemiarthroplasty Family History Family History Other Unknown family medical history Social History Social History Smoking s
[2019-12-06 13:24] LABS: Band Neutrophils Percent 7 % (0-6); Lymphocytes Absolute Manual 0.51 K/mm3 (1.1-4.5); Monocytes Absolute Manual 0.51 K/mm3 (0.1-0.90); Monocytes Percent Manual 5 % (3-9); Neutrophils Absolute Manual 9.18 K/mm3 (1.3-6.7); Neutrophils Percent Manual 83 % (46-73); Total Cells Counted 100
[2019-12-06 13:25] LABS: Platelet Estimate Adequate (Adequate); Poikilocytosis 1+ (NORMAL)
--- NOTE | 2019-12-06 13:34 | WPDINTPN ---
Progress Note: A&P Assessment and Plan (1) Peripheral vascular disease: Code(s): I73.9 - Peripheral vascular disease, unspecified Status: Acute Assessment and Plan: left foot cyanosis, cool to touch left lower extremity below the knee. - Cardiology consulted, recommended arterial Dopplers, - ordered aspirin - stay started patient on heparin infusion, (2) Acute respiratory failure with hypoxia: Code(s): J96.01 - Acute respiratory failure with hypoxia Status: Acute Assessment and Plan: acute respiratory failure likely related to pneumonia, - patient was intubated in the ER on 12/04/2019 - on CMV mode of ventilation, ABGs and chest x-ray reviewed, 50% FiO2 and peep of 5. - Chest x-ray and ABGs reviewed. - continue cefepime and vancomycin - Continue bronchodilators - on fentanyl and Versed infusion for sedation, maintain RASS of 0 to -2, daily sedation vacation (3) Septic shock: Code(s): A41.9 - Sepsis, unspecified organism; R65.21 - Severe sepsis with septic shock Status: Acute Assessment and Plan: septic shock related to hypovolemia, malnourishment, infection, pneumonia - patient adequately fluid-resuscitated - continue bicarb infusion at this time - patient on cefepime and vancomycin - blood and sputum cultures have been obtained and pending - will order urine Legionella and urine pneumococcal antigen (4) Community acquired pneumonia: Code(s): J18.9 - Pneumonia, unspecified organism Status: Acute Assessment and Plan: patient likely with community-acquired pneumonia, on antibiotics as above - continue Pulmozyme (5) BECKY (acute kidney injury): Code(s): N17.9 - Acute kidney failure, unspecified Status: Acute Assessment and Plan: acute kidney injury likely related to hypovolemia, septic shock, hypotension, pneumonia - creatinine improving - continue maintenance IV fluids - lactic acid trending down remains elevated. - Renal ultrasound done on 12/05/2019 showed no hydronephrosis of the right kidney or visualized portion of the largely obscured left kidney. 6 cm right renal cyst - continue to monitor renal function, electrolytes and urine output (6) Decubitus ulcer of left foot, unstageable: Code(s): L89.890 - Pressure ulcer of other site, unstageable Status: Acute Assessment and Plan: wounds on bilateral hips, coccyx, left heel - wound care to evaluate and manage - 12/05/2019: left foot x-ray without evidence of osteomyelitis (7) Person under investigation for COVID-19: Code(s): Z20.828 - Contact with and (suspected) exposure to other viral communicable diseases Status: Acute Assessment and Plan: patient febrile in the ED, bilateral infiltrates right greater than left - SARS-CoV-2 PCR IS NEGATIVE - will discontinue droplet, airborne, contact precautions/isolation (8) DVT prophylaxis: Code(s): Z29.9 - Encounter for prophylactic measures, unspecified Status: Acute Assessment and Plan: on heparin infusion (9) Dietary counseling and surveillance: Code(s): Z71.3 - Dietary counseling and surveillance Status: Acute Assessment and Plan: increase tube feeds stress ulcer prophylaxis: Protonix (10) Atrial fibrillation with RVR: Code(s): I48.91 - Unspecified atrial fibrillation Status: Acute Assessment and Plan: patient has a history of chronic atrial fibrillation, went into AFib RVR likely secondary to septic shock, pneumonia /infection - on amiodarone infusion - continue heparin infusion Additional Plan discussed with patient's son and updated with patient's condition and plan of care. He is aware that patient is in septic shock with severe infection secondary to pneumonia, the patient has bacteremia, he is also aware of the left lower extremity, atrial fibrillation RVR. I discussed with him at length regarding code st
[2019-12-06 14:00] LABS: Glucose Point of Care 132 (65-105)
[2019-12-06 14:25] LABS: Pneumococcal Antigen Urine Not Detected (Not Detected)
--- NOTE | 2019-12-06 17:01 | PM.IMPN ---
Progress Note: A&P Assessment and Plan (1) Atrial fibrillation with RVR: Code(s): I48.91 - Unspecified atrial fibrillation Status: Acute Assessment and Plan: Cardiology rounding ICU rounding (2) Peripheral vascular disease: Code(s): I73.9 - Peripheral vascular disease, unspecified Status: Acute Assessment and Plan: Cardiology rounding (3) Community acquired pneumonia: Code(s): J18.9 - Pneumonia, unspecified organism Status: Acute Assessment and Plan: Pt is covid negative being treated for CAP. (4) Acute renal failure: Qualifiers: Acute renal failure type: with acute tubular necrosis Qualified Code(s): N17.0 - Acute kidney failure with tubular necrosis Code(s): N17.9 - Acute kidney failure, unspecified Status: Acute Assessment and Plan: Fluids creat being watched (5) Decubitus ulcer of left foot, unstageable: Code(s): L89.890 - Pressure ulcer of other site, unstageable Status: Acute Assessment and Plan: Cardiology folowing ischemic foot may need vascular services. Wound care ongoing to let wound (6) Acute respiratory failure with hypoxia: Code(s): J96.01 - Acute respiratory failure with hypoxia Status: Acute Assessment and Plan: Pt is intubated on vent in icu (7) Septic shock: Code(s): A41.9 - Sepsis, unspecified organism; R65.21 - Severe sepsis with septic shock Status: Acute Assessment and Plan: Pt is on vasopressors and IV ABC following BC Subjective Date/time seen: 12/06/19 17:01 Interval history: 84 year old maleWith a past medical history of CVA, dysphagia, atrial fibrillation and essential hypertension who presented to the ER from [facility] with respiratory distress and altered mental status. Pt is currently in ICU intubated on a vent. Issues with AF with RVR and ischemic foot. COVID is negative. Review of Systems Review of Systems: ROS unobtainable: Yes unobtainable due to endotracheal tube Exam Narrative: Exam Narrative: elderly frail HENMT: General nose exam: Normal nares present Other: ET tube in place Resp: Auscultation: diminished lung sounds Cardio: Rate: regular rate Rhythm: regular rhythm GI: Auscultation: normal bowel sounds Skin: General skin exam: normal color Extrem: Other: left lower extremity ischemic foot Objective Data Vital Signs Vital Signs: Vital Signs - 24 hr 12/05/19 18:00 12/05/19 18:52 12/05/19 18:54 Temperature Pulse Rate 86 86 86 Respiratory Rate 20 20 Blood Pressure 104/67 109/76 Pulse Oximetry 96 12/05/19 20:00 12/05/19 20:10 12/05/19 21:35 Temperature 36.6 C Pulse Rate 87 94 87 Respiratory Rate 20 20 Blood Pressure 92/62 L Pulse Oximetry 97 97 12/05/19 21:36 12/05/19 21:37 12/05/19 21:38 Temperature Pulse Rate 87 87 80 Respiratory Rate 20 Blood Pressure 107/59 L 107/69 Pulse Oximetry 12/05/19 21:39 12/05/19 21:43 12/05/19 21:44 Temperature 36.6 C Pulse Rate 80 94 94 Respiratory Rate 20 20 Blood Pressure 107/69 107/69 Pulse Oximetry 98 12/05/19 23:30 12/05/19 23:55 12/05/19 23:58 Temperature 36.8 C Pulse Rate 95 85 95 Respiratory Rate 20 Blood Pressure 98/59 L 82/53 L Pulse Oximetry 95 92 12/06/19 00:00 12/06/19 00:02 12/06/19 00:03 Temperature Pulse Rate 93 91 86 Respiratory Rate 20 20 Blood Pressure 82/53 L Pulse Oximetry 12/06/19 00:40 12/06/19 00:41 12/06/19 01:09 Temperature Pulse Rate 94 100 Respiratory Rate Blood Pressure 82/56 L 82/56 L 93/64 L Pulse Oximetry 12/06/19 01:24 12/06/19 02:25 12/06/19 02:32 Temperature Pulse Rate 89 122 H 122 H Respiratory Rate 20 20 Blood Pressure 102/61 Pulse Oximetry 96 93 12/06/19 02:35 12/06/19 04:00 12/06/19 05:13 Temperature 36.8 C Pulse Rate 120 H 137 H 128 H Respiratory Rate 20 20 Blood Pressure 106/76 Pulse O
[2019-12-06 17:08] LABS: Partial Thromboplastin Time > 200.0 SECONDS (22.3-36.8)
[2019-12-06 17:41] LABS: Hemoglobin 9.1 g/dL (14.0-18.0); Mean Corpuscular HGB Conc 31.4 g/dl (32-36); Mean Corpuscular Hemoglobin 27.2 pg (26-34); Mean Corpuscular Volume 86.6 fl (80-100); Mean Platelet Volume 9.7 fl (7.4-10.4); Platelet Count Result 224 k/mm3 (150-375); Red Blood Count 3.35 M/mm3 (4.6-6.20); Red Cell Distribution Width 16.2 % (11.5-14.5); White Blood Count 11.1 K/mm3 (4.5-10.0)
[2019-12-06] MEDS: LACTATED RINGERS 500 ML 999 ML IV CONT (18:00)
[2019-12-06] MEDS: NOREPINEPHRINE 8 MG/D5W 250 ML 8 MG/250 ML BAG 31.9 MG IV CONT (20:47)
[2019-12-06 23:15] LABS: Partial Thromboplastin Time 56.7 SECONDS (22.3-36.8)
[2019-12-07] VITALS (30 sets, daily range): BP systolic 63–121; BP diastolic 53–97; PULSE 70–147; RESP 11–23; TEMP 36.8–38; O2SAT 92–100
[2019-12-07] MEDS: HEPARIN SODIUM 5,000 UNITS/ML VIAL 2500 UNITS IV PUSH (00:05)
[2019-12-07] MEDS: SODIUM BICARBONATE 8.4% 150 MEQ in DEXTROSE 5% 1,000 ML 950 ML 75 MEQ IV CONT (00:15)
[2019-12-07 00:44] LABS: Glucose Point of Care 75 (65-105)
[2019-12-07] MEDS: ALBUTEROL SULFATE NEB 2.5 MG/0.5 ML INH INHALATION ×4 (01:58→20:16)
[2019-12-07] MEDS: IPRATROPIUM BR 0.02% INH SOLN 0.5 MG/2.5 ML VIAL INHALATION ×4 (01:59→20:16)
[2019-12-07] MEDS: AMIODARONE 360 MG/D5W 200 ML 360 MG/200 ML BAG 33.3 MG IV CONT ×4 (03:24→21:35)
[2019-12-07 04:22] LABS: Alveolar/Arterial O2 Gradient 249.5 mmHg; Base Excess ABG 3.1 mEq/l (+/-2.0); Carboxyhemoglobin 0.2 % THb (0-2.0); Fractional Inspired Oxygen 50 %; HCO3 ABG 26.4 mEq/l (22.0-26.0); Methemoglobin ABG 0.3 %THb (0-1.5); Oxygen Content ABG 13.8 %vol (16.0-22.0); Oxygen Saturation ABG 94.8 % (95.0-100.0); Oxyhemoglobin 93.1 % THb (90.0-100.0); PCO2 ABG 35.4 mmHg (35.0-45.0); PO2 ABG 67.2 mmHg (80.0-100.0); PO2 FiO2 Ratio Arterial Blood 1.34 %; Reduced Hemoglobin 6.4 %THb (0-5.0); Total Hemoglobin 10.5 g/dL (12.0-18.0)
[2019-12-07 04:23] LABS: Device VENTILATOR; Modified Allen's Test Pass; Site Drawn LEFT RADIAL
[2019-12-07 04:24] LABS: Arterial Blood Gas PEEP 5 cmH2O; Arterial Blood Gas Tidal Volume 450 ml; Arterial Blood Gas Vent Mode CMV; Arterial Blood Gas Ventilator rate 20 /MIN
[2019-12-07 04:26] LABS: Basophils Percent Auto 0.1 % (0.2-1.2); Eosinophils Percent Auto 0.1 % (0-4.4); Hematocrit 29.5 % (42.0-52.0); Hemoglobin 9.5 g/dL (14.0-18.0); Immature Granulocyte Absolute 0.15 K/mm3 (0.00-0.031); Immature Granulocyte Percent A 1.2 % (0-0.5); Lymphocytes Absolute Auto 0.26 K/mm3 (0.9-3.2); Lymphocytes Percent Auto 2.1 % (18.3-44.2); Mean Corpuscular HGB Conc 32.2 g/dl (32-36); Mean Corpuscular Hemoglobin 27.4 pg (26-34); Mean Platelet Volume 9.6 fl (7.4-10.4); Monocytes Absolute Auto 0.2 K/mm3 (0.1-0.6); Monocytes Percent Auto 1.7 % (2.6-8.5); Neutrophils Percent Auto 94.8 % (45.5-73.1); Platelet Count Result 214 k/mm3 (150-375); Red Blood Count 3.47 M/mm3 (4.6-6.20); Red Cell Distribution Width 16.2 % (11.5-14.5); White Blood Count 12.7 K/mm3 (4.5-10.0)
[2019-12-07 04:56] LABS: Lactic Acid Reflex 5.3 mmol/L (0.7-2.1)
[2019-12-07 04:57] LABS: Alanine Aminotransferase 102 U/L (4-50); Albumin Level 2.2 g/dL (3.5-5.1); Alkaline Phosphatase 124 U/L (38-126); Anion Gap 9 mmol/L (8-16); Aspartate Amino Transferase 214 U/L (17-59); Bilirubin,Total 0.3 mg/dL (0.2-1.3); Blood Urea Nitrogen 35 mg/dL (9-20); Calcium 6.5 mg/dL (8.4-10.2); Carbon Dioxide 32 mmol/L (22-30); Chloride 90 mmol/L (98-107); Estimated CRCL calculation 44 ml/min; Estimated Glomerular Filt Rate > 60; Glucose 133 mg/dL (75-110); Magnesium 2.2 mg/dL (1.6-2.3); Potassium 2.8 mmol/L (3.4-5.0); Sodium 131 mmol/L (137-145)
[2019-12-07] MEDS: NOREPINEPHRINE 8 MG/D5W 250 ML 8 MG/250 ML BAG 30 MG IV CONT (05:32)
[2019-12-07 06:11] LABS: CRP 40.2 mg/dL (<1.0)
[2019-12-07 07:24] LABS: Reflex Lactic Acid Yes or No Add Lactic
[2019-12-07 08:06] LABS: Anion Gap 9 mmol/L (8-16); Blood Urea Nitrogen 35 mg/dL (9-20); Calcium 6.5 mg/dL (8.4-10.2); Carbon Dioxide 33 mmol/L (22-30); Chloride 89 mmol/L (98-107); Estimated CRCL calculation 44 ml/min; Estimated Glomerular Filt Rate > 60; Glucose 145 mg/dL (75-110); Lactic Acid Reflex 5.3 mmol/L (0.7-2.1); Magnesium 2.1 mg/dL (1.6-2.3); Potassium 2.8 mmol/L (3.4-5.0); Sodium 131 mmol/L (137-145)
[2019-12-07] MEDS: PANTOPRAZOLE SODIUM IV 40 MG VIAL IV PUSH ×2 (08:50→19:53)
[2019-12-07] MEDS: POTASSIUM CHLORIDE 20 MEQ PACKET (FOR LIQUID) 40 MEQ FEED TUBE (08:50)
[2019-12-07] MEDS: ASPIRIN 325 MG TABLET FEED TUBE (08:50)
[2019-12-07] MEDS: CALCIUM GLUC 2,000 MG/NS 100ML 2,000 MG/100 ML BAG 100 MG IVPB (08:58)
[2019-12-07] MEDS: POTASSIUM/PHOSPHORUS/SODIUM 1.5 GM PACKET 1 PACKET PO (09:00)
[2019-12-07] MEDS: DEXTROSE 5%/0.9% SOD CHL 1,000 ML 75 ML IV CONT (11:14)
[2019-12-07 12:17] LABS: Glucose Point of Care 77 (65-105)
--- NOTE | 2019-12-07 12:38 | WPDINTPN ---
Progress Note: A&P Assessment and Plan (1) Peripheral vascular disease: Code(s): I73.9 - Peripheral vascular disease, unspecified Status: Acute Assessment and Plan: left foot cyanosis, cool to touch left lower extremity below the knee. - Cardiology consulted, recommended arterial Dopplers, - continue aspirin - patient on heparin infusion - arterial Dopplers 12/06/2019 shows increased pressure gradients in the superficial femoral arteries, consistent with arterial occlusive disease. Tolerated tubal fluid left posterior tibial artery, anterior tibial artery and dorsalis pedis. (2) Acute respiratory failure with hypoxia: Code(s): J96.01 - Acute respiratory failure with hypoxia Status: Acute Assessment and Plan: acute respiratory failure likely related to pneumonia, - patient was intubated in the ER on 12/04/2019 - on CMV mode of ventilation, ABGs and chest x-ray reviewed, 50% FiO2 and peep of 5. - Chest x-ray and ABGs reviewed. - continue cefepime and vancomycin - Continue bronchodilators - on fentanyl and Versed infusion for sedation, maintain RASS of 0 to -2, daily sedation vacation (3) Septic shock: Code(s): A41.9 - Sepsis, unspecified organism; R65.21 - Severe sepsis with septic shock Status: Acute Assessment and Plan: septic shock related to hypovolemia, malnourishment, infection, pneumonia - patient adequately fluid-resuscitated - Will discontinue bicarb infusion and place patient on D5 NS - patient on cefepime and vancomycin - blood and sputum cultures have been obtained and pending - will order urine Legionella and urine pneumococcal antigen (4) Community acquired pneumonia: Code(s): J18.9 - Pneumonia, unspecified organism Status: Acute Assessment and Plan: patient likely with community-acquired pneumonia, on antibiotics as above - continue Pulmozyme (5) BECKY (acute kidney injury): Code(s): N17.9 - Acute kidney failure, unspecified Status: Acute Assessment and Plan: acute kidney injury likely related to hypovolemia, septic shock, hypotension, pneumonia - creatinine improving - continue maintenance IV fluids - lactic acid lactic acid remains elevated. - Renal ultrasound done on 12/05/2019 showed no hydronephrosis of the right kidney or visualized portion of the largely obscured left kidney. 6 cm right renal cyst - continue to monitor renal function, electrolytes and urine output (6) Decubitus ulcer of left foot, unstageable: Code(s): L89.890 - Pressure ulcer of other site, unstageable Status: Acute Assessment and Plan: wounds on bilateral hips, coccyx, left heel - wound care to evaluate and manage - 12/05/2019: left foot x-ray without evidence of osteomyelitis (7) Person under investigation for COVID-19: Code(s): Z20.828 - Contact with and (suspected) exposure to other viral communicable diseases Status: Acute Assessment and Plan: patient febrile in the ED, bilateral infiltrates right greater than left - SARS-CoV-2 PCR IS NEGATIVE - will discontinue droplet, airborne, contact precautions/isolation (8) DVT prophylaxis: Code(s): Z29.9 - Encounter for prophylactic measures, unspecified Status: Acute Assessment and Plan: on heparin infusion (9) Dietary counseling and surveillance: Code(s): Z71.3 - Dietary counseling and surveillance Status: Acute Assessment and Plan: patient not tolerating tube feeds, will hold stress ulcer prophylaxis: Protonix (10) Atrial fibrillation with RVR: Code(s): I48.91 - Unspecified atrial fibrillation Status: Acute Assessment and Plan: patient has a history of chronic atrial fibrillation, went into AFib RVR likely secondary to septic shock, pneumonia /infection - on amiodarone infusion - continue heparin infusion Additional Plan discussed with son on 12/06/2019: Is aware th
--- NOTE | 2019-12-07 13:46 | PM.PNCARD ---
Progress Note: A&P Assessment and Plan (1) Decubitus ulcer of left foot, unstageable: Code(s): L89.890 - Pressure ulcer of other site, unstageable Status: Acute Assessment and Plan: He has left ankle ulcer with necrotic tissue, and a dark demarcation indicative of chronic necrosis, and underlying gangrene, he seems to have severe peripheral vascular disease but does not seem to be acute most likely is chronic with chronic ulcer. His popliteal pulse on the left side is absent indicating femoral artery disease. Obviously with his other conditions the only possible treatment that may help his aspirin and heparin for the time being, and considering further imaging to evaluate location of his worse disease, to consider further treatment in the future. In the future whenever he is otherwise okay after he recovers his sepsis and acute events, one would consider further evaluation, definitely he will need some amputation, but in the event that there is any possible revascularization would improve his chances of less tissue loss and less amputation. (2) Acute renal failure: Qualifiers: Acute renal failure type: with acute tubular necrosis Qualified Code(s): N17.0 - Acute kidney failure with tubular necrosis Code(s): N17.9 - Acute kidney failure, unspecified Status: Acute (3) Septic shock: Code(s): A41.9 - Sepsis, unspecified organism; R65.21 - Severe sepsis with septic shock Status: Acute Assessment and Plan: okay for fluid hydration for resuscitation, will get echocardiogram to evaluate current status of left ventricular systolic function (4) Acute respiratory failure with hypoxia: Code(s): J96.01 - Acute respiratory failure with hypoxia Status: Acute (5) Peripheral vascular disease: Code(s): I73.9 - Peripheral vascular disease, unspecified Status: Acute Assessment and Plan: He seems to have chronic severe peripheral vascular disease more so on the left side with possible occlusion of left SFA. At this time he has other significant comorbidities, so there is no sense of doing any intervention or any testing until he is otherwise okay. Additional Plan Subjective Date/time seen: 12/07/19 13:46 still on the vent, sedated ventilated, blood pressure is on the lower side is currently on pressors but not in acute distress Exam Narrative: Exam Narrative: He is on the vent ventilated and sedated, no active spontaneous movement noted Neck is supple no obvious JVD, he has left carotid bruit Chest: decreased air entry bilaterally with crackles noted bilaterally Cardiovascular: Regular rate and rhythm, 2/6 systolic murmur noted left sternal border Abdomen: tense and distended, no focal tenderness, G-tube in place Extremities: No edema has no popliteal pulse on the left side, no distal pulse palpable, on the right side has faint popliteal pulse and very weak anterior tibial. There is significant necrotic tissue noted in the left ankle with dark base Objective Data Vital Signs Vital Signs: Vital Signs - 24 hr 12/06/19 14:00 12/06/19 14:46 12/06/19 14:48 Temperature 37.5 C Pulse Rate 124 H 130 H 124 H Respiratory Rate 20 15 Blood Pressure 75/56 L Pulse Oximetry 98 92 12/06/19 14:54 12/06/19 16:00 12/06/19 17:13 Temperature 37.7 C H Pulse Rate 133 H 147 H 128 H Respiratory Rate 16 20 Blood Pressure 111/76 Pulse Oximetry 98 97 12/06/19 17:50 12/06/19 17:59 12/06/19 20:00 Temperature 36.8 C Pulse Rate 144 H 110 H 113 H Respiratory Rate 21 H 18 Blood Pressure 101/77 101/68 Pulse Oximetry 99 98 12/06/19 20:09 12/06/19 20:15 12/06/19 20:17 Temperature 36.8 C Pulse Rate 120 H 123 H 123 H Respiratory Rate 22 H 18 22 H Blood Pressure 101/71 Pulse Oximetry 98 98 12/06/19 20:30 12/06/19 20:45 12/06/19 20:47 Temperature 36.8 C 36.8 C Pulse Rate 122 H 103 H 125 H Respiratory Rate 19 18 Bloo
[2019-12-07 15:44] LABS: Potassium 3.1 mmol/L (3.4-5.0)
[2019-12-07 16:26] LABS: Anion Gap 8 mmol/L (8-16); Blood Urea Nitrogen 33 mg/dL (9-20); Calcium 6.8 mg/dL (8.4-10.2); Carbon Dioxide 32 mmol/L (22-30); Chloride 91 mmol/L (98-107); Estimated CRCL calculation 47 ml/min; Estimated Glomerular Filt Rate > 60; Glucose 109 mg/dL (75-110); Potassium 3.1 mmol/L (3.4-5.0); Sodium 131 mmol/L (137-145)
[2019-12-07] MEDS: POTASSIUM CHLORIDE 20 MEQ PACKET (FOR LIQUID) 40 MEQ PO (17:49)
[2019-12-07 17:50] LABS: Glucose Point of Care 52 (65-105)
--- NOTE | 2019-12-07 17:59 | PM.IMPN ---
Progress Note: A&P Assessment and Plan (1) Septic shock: Code(s): A41.9 - Sepsis, unspecified organism; R65.21 - Severe sepsis with septic shock Status: Acute Assessment and Plan: blood cultures and urine cultures are pending. patient will be placed on broad-spectrum antibiotic coverage. Will discontinue Rocephin and has a throw and switch patient to cefepime and vancomycin. No broaden antibiotic coverage because the patient also has a necrotic foot wound which could also be contributing to his septic picture. Most likely due to pneumonia given the patient's history of dysphagia aspiration is suspected. However given patient is currently in a [facility] facility COVID-19 must be ruled out. The patient was placed on droplet precautions. 12/07/19 17:59 patient 84 male resident of nursing patient was sent to emergency via EMS hypoxic he was seen and emergency department to protect the patient airways patient was intubated, is found to left lower extremity with ischemia and necrotic tissue patient is seen by vascular team and currently in the ICU intubated unable to provide any review of symptoms, discussed with sustainability officer patient is off sedation however patient is not responding and not follow simple instruction. (2) Acute respiratory failure with hypoxia: Code(s): J96.01 - Acute respiratory failure with hypoxia Status: Acute Assessment and Plan: Due to pneumonia and septic shock. Patient's ABGs have been reviewed. Will titrate patient's FiO2 downward as tolerated. Continue ventilator tidal volume 400, peep of 5, rate 18 (3) Decubitus ulcer of left foot, unstageable: Code(s): L89.890 - Pressure ulcer of other site, unstageable Status: Acute Assessment and Plan: wound care consult. will check bedside Doppler for pedal and posterior tibial pulse (4) Acute renal failure: Qualifiers: Acute renal failure type: with acute tubular necrosis Qualified Code(s): N17.0 - Acute kidney failure with tubular necrosis Code(s): N17.9 - Acute kidney failure, unspecified Status: Acute Assessment and Plan: due to septic shock. repeat BMP in a.m.. Subjective Date/time seen: 12/07/19 17:59 patient 84 male resident of nursing patient was sent to emergency via EMS hypoxic he was seen and emergency department to protect the patient airways patient was intubated, is found to left lower extremity with ischemia and necrotic tissue patient is seen by vascular team and currently in the ICU intubated unable to provide any review of symptoms, discussed with sustainability officer patient is off sedation however patient is not responding and not follow simple instruction. Review of Systems Review of Systems: ROS unobtainable: Yes unobtainable due to endotracheal tube Exam Narrative: Exam Narrative: elderly frail Const: General: comfortable and no acute distress HENMT: General nose exam: Normal nares present Other: ET tube in place Neck: Neck: supple Resp: Other: bilateral poor air entry and poor effort rhonchi Cardio: Rate: regular rate Rhythm: regular rhythm GI: Auscultation: normal bowel sounds Skin: General skin exam: normal color Neuro: Other: on vent off sedation not responding Extrem: Other: left lower extremity with a wound Psych: Other: patient on vent Objective Data Vital Signs Vital Signs: Vital Signs - 24 hr 12/06/19 20:00 12/06/19 20:09 12/06/19 20:15 Temperature 98.3 F 98.2 F Pulse Rate 113 H 120 H 123 H Respiratory Rate 18 22 H 18 Blood Pressure 101/68 101/71 Pulse Oximetry 98 98 98 12/06/19 20:17 12/06/19 20:30 12/06/19 20:45 Temperature 98.2 F 98.3 F Pulse Rate 123 H 122 H 103 H Respiratory Rate 22 H 19 18 Blood Pressure 80/61 L 74/61 L Pulse Oximetry 99 97 12/06/19 20:47 12/06/19 21:00 12/06/19 21:15 Temperature 98.2 F 98.2 F Pulse Rate 125 H 127 H 128 H Respiratory Rate 17
[2019-12-07] MEDS: SODIUM CHLORIDE 0.9% IV 1,000 ML 50 ML IV CONT (18:24)
[2019-12-07] MEDS: DEXTROSE 10% 1,000 ML 30 ML IV CONT (18:25)
[2019-12-07] MEDS: DEXTROSE 50% 25 GM/50 ML SYRINGE IV PUSH (20:05)
[2019-12-07 20:31] LABS: Partial Thromboplastin Time 73.6 SECONDS (22.3-36.8)
[2019-12-07 21:49] LABS: Glucose Point of Care 59 (65-105)
[2019-12-07 21:50] LABS: Glucose Point of Care 62 (65-105)
[2019-12-08] VITALS (28 sets, daily range): BP systolic 95–129; BP diastolic 61–96; PULSE 72–121; RESP 16–22; TEMP 35.9–38.2; O2SAT 94–100
[2019-12-08] MEDS: NOREPINEPHRINE 8 MG/D5W 250 ML 8 MG/250 ML BAG 9.4 MG IV CONT
[2019-12-08] MEDS: HEPARIN SOD/D5W 100 UNITS/ML 25,000 UNITS/250 ML BAG 7 UNITS IV CONT (00:01)
[2019-12-08] MEDS: DEXTROSE 50% 25 GM/50 ML SYRINGE IV PUSH (00:22)
[2019-12-08] MEDS: ALBUTEROL SULFATE NEB 2.5 MG/0.5 ML INH INHALATION ×4 (01:52→19:34)
[2019-12-08] MEDS: IPRATROPIUM BR 0.02% INH SOLN 0.5 MG/2.5 ML VIAL INHALATION ×4 (01:52→19:34)
[2019-12-08 01:58] LABS: Glucose Point of Care 56 (65-105)
[2019-12-08 01:58] LABS: Glucose Point of Care 75 (65-105)
[2019-12-08 03:14] LABS: Partial Thromboplastin Time 82.2 SECONDS (22.3-36.8)
[2019-12-08] MEDS: AMIODARONE 360 MG/D5W 200 ML 360 MG/200 ML BAG 33.3 MG IV CONT ×2 (04:23→11:37)
[2019-12-08 04:44] LABS: Alveolar/Arterial O2 Gradient 235.5 mmHg; Base Excess ABG 3.5 mEq/l (+/-2.0); Carboxyhemoglobin 0.3 % THb (0-2.0); Fractional Inspired Oxygen 50 %; HCO3 ABG 25.8 mEq/l (22.0-26.0); Methemoglobin ABG 0.4 %THb (0-1.5); Oxygen Content ABG 15.2 %vol (16.0-22.0); Oxygen Saturation ABG 97.4 % (95.0-100.0); Oxyhemoglobin 95.8 % THb (90.0-100.0); PCO2 ABG 31.6 mmHg (35.0-45.0); PO2 ABG 85.5 mmHg (80.0-100.0); PO2 FiO2 Ratio Arterial Blood 1.71 %; Reduced Hemoglobin 3.5 %THb (0-5.0); Total Hemoglobin 11.2 g/dL (12.0-18.0)
[2019-12-08 04:45] LABS: Device VENTILATOR; Modified Allen's Test Pass; Site Drawn LEFT RADIAL
[2019-12-08 04:49] LABS: Arterial Blood Gas PEEP 5 cmH2O; Arterial Blood Gas Tidal Volume 450 ml; Arterial Blood Gas Vent Mode CMV; Arterial Blood Gas Ventilator rate 18 /MIN
[2019-12-08 06:04] LABS: Hematocrit 23.7 % (42.0-52.0); Mean Corpuscular HGB Conc 33.8 g/dl (32-36); Mean Corpuscular Hemoglobin 26.8 pg (26-34); Mean Corpuscular Volume 79.5 fl (80-100); Mean Platelet Volume 10.5 fl (7.4-10.4); Platelet Count Result 188 k/mm3 (150-375); Red Blood Count 2.98 M/mm3 (4.6-6.20); Red Cell Distribution Width 16.3 % (11.5-14.5); White Blood Count 11.6 K/mm3 (4.5-10.0)
[2019-12-08] MEDS: KETOROLAC 30 MG/ML VIAL (*BKC) IV PUSH (06:34)
[2019-12-08] MEDS: HYDROCORTISONE SODIUM SUCCINATE 100 MG/2 ML VIAL IV PUSH ×3 (06:36→21:12)
[2019-12-08 07:25] LABS: Alanine Aminotransferase 102 U/L (4-50); Alkaline Phosphatase 156 U/L (38-126); Anion Gap 7 mmol/L (8-16); Aspartate Amino Transferase 156 U/L (17-59); Bilirubin,Total 0.3 mg/dL (0.2-1.3); Blood Urea Nitrogen 28 mg/dL (9-20); CRP 38.7 mg/dL (<1.0); Calcium 6.7 mg/dL (8.4-10.2); Carbon Dioxide 30 mmol/L (22-30); Chloride 95 mmol/L (98-107); Estimated CRCL calculation 49 ml/min; Estimated Glomerular Filt Rate > 60; Glucose 119 mg/dL (75-110); Magnesium 1.9 mg/dL (1.6-2.3); Sodium 132 mmol/L (137-145)
[2019-12-08] MEDS: POTASSIUM CHLORIDE 20 MEQ PACKET (FOR LIQUID) 40 MEQ PO (08:41)
[2019-12-08] MEDS: POTASSIUM/PHOSPHORUS/SODIUM 1.5 GM PACKET 1 PACKET PO (08:42)
[2019-12-08 08:51] LABS: Glucose Point of Care 130 (65-105)
[2019-12-08 08:59] LABS: Reflex Lactic Acid Yes or No Add Lactic
--- NOTE | 2019-12-08 10:23 | WPDINTPN ---
Progress Note: A&P Assessment and Plan (1) Peripheral vascular disease: Code(s): I73.9 - Peripheral vascular disease, unspecified Status: Acute Assessment and Plan: left foot cyanosis, cool to touch left lower extremity below the knee. - lactic acid persistently remains elevated likely secondary to left foot ischemia - Cardiology consulted, recommended arterial Dopplers, - continue aspirin - patient on heparin infusion - arterial Dopplers 12/06/2019 shows increased pressure gradients in the superficial femoral arteries, consistent with arterial occlusive disease. Tolerated tubal fluid left posterior tibial artery, anterior tibial artery and dorsalis pedis. (2) Acute respiratory failure with hypoxia: Code(s): J96.01 - Acute respiratory failure with hypoxia Status: Acute Assessment and Plan: acute respiratory failure likely related to pneumonia, - patient was intubated in the ER on 12/04/2019 - on CMV mode of ventilation, ABGs and chest x-ray reviewed, 50% FiO2 and peep of 5. - Chest x-ray and ABGs reviewed., ventilator adjusted - continue cefepime and vancomycin - Continue bronchodilators - on fentanyl and Versed infusion for sedation, maintain RASS of 0 to -2, daily sedation vacation (3) Septic shock: Code(s): A41.9 - Sepsis, unspecified organism; R65.21 - Severe sepsis with septic shock Status: Acute Assessment and Plan: septic shock related to hypovolemia, malnourishment, infection, pneumonia - patient adequately fluid-resuscitated - Will discontinue bicarb infusion and place patient on D5 NS - patient on cefepime and vancomycin - blood cultures growing Klebsiella pneumonia sensitive to cefepime - sputum cultures negative - urine pneumococcal antigen was not detected - urine Legionella antigen pending (4) Community acquired pneumonia: Code(s): J18.9 - Pneumonia, unspecified organism Status: Acute Assessment and Plan: patient likely with community-acquired pneumonia, on antibiotics as above - continue Pulmozyme (5) BECKY (acute kidney injury): Code(s): N17.9 - Acute kidney failure, unspecified Status: Acute Assessment and Plan: acute kidney injury likely related to hypovolemia, septic shock, hypotension, pneumonia - creatinine normalized - on D10 IV fluids due to hypoglycemia - lactic acid lactic acid remains elevated likely secondary to ischemic foot, liver dysfunction due to septic shock, infection - replace potassium and phosphorus - Renal ultrasound done on 12/05/2019 showed no hydronephrosis of the right kidney or visualized portion of the largely obscured left kidney. 6 cm right renal cyst - continue to monitor renal function, electrolytes and urine output (6) Decubitus ulcer of left foot, unstageable: Code(s): L89.890 - Pressure ulcer of other site, unstageable Status: Acute Assessment and Plan: wounds on bilateral hips, coccyx, left heel - wound care to evaluate and manage - 12/05/2019: left foot x-ray without evidence of osteomyelitis (7) Person under investigation for COVID-19: Code(s): Z20.828 - Contact with and (suspected) exposure to other viral communicable diseases Status: Acute Assessment and Plan: patient febrile in the ED, bilateral infiltrates right greater than left - SARS-CoV-2 PCR IS NEGATIVE - OFF droplet, airborne, contact precautions/isolation (8) DVT prophylaxis: Code(s): Z29.9 - Encounter for prophylactic measures, unspecified Status: Acute Assessment and Plan: on heparin infusion (9) Dietary counseling and surveillance: Code(s): Z71.3 - Dietary counseling and surveillance Status: Acute Assessment and Plan: restarted tube feeds yesterday, 25 mL/hour and tolerating stress ulcer prophylaxis: Protonix (10) Atrial fibrillation with RVR: Code(s): I48.91 - Unspecified atrial fibrillation
[2019-12-08 10:28] LABS: Lactic Acid 3.7 mmol/L (0.7-2.1)
[2019-12-08] MEDS: ASPIRIN 325 MG TABLET FEED TUBE (11:35)
[2019-12-08] MEDS: PANTOPRAZOLE SODIUM IV 40 MG VIAL IV PUSH ×2 (11:36→21:12)
[2019-12-08 11:42] LABS: Glucose Point of Care 141 (65-105)
--- NOTE | 2019-12-08 16:24 | PM.IMPN ---
Progress Note: A&P Assessment and Plan (1) Septic shock: Code(s): A41.9 - Sepsis, unspecified organism; R65.21 - Severe sepsis with septic shock Status: Acute Assessment and Plan: blood cultures and urine cultures are pending. patient will be placed on broad-spectrum antibiotic coverage. Will discontinue Rocephin and has a throw and switch patient to cefepime and vancomycin. No broaden antibiotic coverage because the patient also has a necrotic foot wound which could also be contributing to his septic picture. Most likely due to pneumonia given the patient's history of dysphagia aspiration is suspected. However given patient is currently in a [facility] facility COVID-19 must be ruled out. The patient was placed on droplet precautions. 12/08/19 16:24 patient 84 male resident of nursing patient was sent to emergency via EMS hypoxic he was seen and emergency department to protect the patient airways patient was intubated, is found to left lower extremity with ischemia and necrotic tissue patient is seen by vascular team and currently in the ICU intubated unable to provide any review of symptoms, discussed with k9 handler patient is off sedation however patient is not responding and not follow simple instruction. today there are no new symptoms or findings (2) Acute respiratory failure with hypoxia: Code(s): J96.01 - Acute respiratory failure with hypoxia Status: Acute Assessment and Plan: Due to pneumonia and septic shock. Patient's ABGs have been reviewed. Will titrate patient's FiO2 downward as tolerated. Continue ventilator tidal volume 400, peep of 5, rate 18 (3) Decubitus ulcer of left foot, unstageable: Code(s): L89.890 - Pressure ulcer of other site, unstageable Status: Acute Assessment and Plan: wound care consult. will check bedside Doppler for pedal and posterior tibial pulse (4) Acute renal failure: Qualifiers: Acute renal failure type: with acute tubular necrosis Qualified Code(s): N17.0 - Acute kidney failure with tubular necrosis Code(s): N17.9 - Acute kidney failure, unspecified Status: Acute Assessment and Plan: due to septic shock. repeat BMP in a.m.. Subjective Date/time seen: 12/08/19 16:24 patient 84 male resident of nursing patient was sent to emergency via EMS hypoxic he was seen and emergency department to protect the patient airways patient was intubated, is found to left lower extremity with ischemia and necrotic tissue patient is seen by vascular team and currently in the ICU intubated unable to provide any review of symptoms, discussed with k9 handler patient is off sedation however patient is not responding and not follow simple instruction. today there are no new symptoms or findings Review of Systems Review of Systems: ROS unobtainable: Yes unobtainable due to endotracheal tube Exam Narrative: Exam Narrative: elderly frail Const: General: comfortable and no acute distress HENMT: General nose exam: Normal nares present Other: ET tube in place Neck: Neck: supple Resp: Other: bilateral poor air entry and poor effort rhonchi Cardio: Rate: regular rate Rhythm: regular rhythm GI: Auscultation: normal bowel sounds Skin: General skin exam: normal color Neuro: Other: on vent off sedation not responding Extrem: Other: left lower extremity with a wound Psych: Other: patient on vent Objective Data Vital Signs Vital Signs: Vital Signs - 24 hr 12/07/19 16:47 12/07/19 18:00 12/07/19 20:00 Temperature 100.2 F H 100.3 F H Pulse Rate 82 124 H 81 Respiratory Rate 21 H 17 Blood Pressure 101/61 97/53 L Pulse Oximetry 97 100 99 12/07/19 20:16 12/07/19 20:17 12/07/19 22:00 Temperature 100.4 F H Pulse Rate 80 81 80 Respiratory Rate 20 16 Blood Pressure 106/58 L Pulse Oximetry 100 100 12/07/19 22:57 12/08/19 00:00 12/08/19 01:52 Te
[2019-12-08] MEDS: DEXTROSE 10% 1,000 ML 60 ML IV CONT (17:28)
[2019-12-08 17:32] LABS: Glucose Point of Care 145 (65-105)
[2019-12-08 18:37] LABS: Legionella pneumophila Ag Ur Not Detected (Not Detected)
[2019-12-09] VITALS (19 sets, daily range): BP systolic 81–131; BP diastolic 49–77; PULSE 65–100; RESP 11–20; TEMP 36.1–37.1; O2SAT 85–100
--- NOTE | 2019-12-09 | ECHO_ITS ---
Patient Info Name: Conrado Batres Age: 84 years : 1935 Gender: Male Ht: 69 in Wt: 139 lbs BSA: 1.75 m2 HR: 72 bpm BP: 118 / 61 mmHg Technical Quality: Fair Exam Date: 12/09/2019 7:27 AM Exam Location: [facility] Pulmonary Patient Status: Inpatient Admit Date: 12/05/2019 Staff Ordering Physician: Julio Merino MD Chief Telephone Operator: Tresa Alicia RDCS Attending Provider: Licha Virk DO Exam Type: CA echo doppler color flow Study Info Indications I10 - Essential (primary) hypertension I48.0 - Paroxysmal atrial fibrillation Complete two-dimensional, color flow and Doppler transthoracic echocardiogram is performed. Summary 1. Complete two-dimensional, color flow and Doppler transthoracic echocardiogram is performed. 2. Left ventricular chamber dimension is normal. 3. The mitral valve has thickened leaflets. 4. There is mild mitral valve regurgitation. 5. Technically difficult study with limited views. 6. Grade I diastolic dysfunction of the left ventricle (impaired relaxation pattern). 7. Moderate pulmonary hypertension, estimated pulmonary arterial systolic pressure is 52 mmHg. 8. There is mild tricuspid valve regurgitation. 9. Left ventricular systolic function is normal with an estimated ejection fraction of 5560.0 %. Left Ventricle Left ventricular chamber dimension is normal. Left ventricular systolic function is normal with an estimated ejection fraction of 5560.0 %. Grade I diastolic dysfunction of the left ventricle (impaired relaxation pattern). Right Ventricle Right ventricle chamber size are normal. Left Atria Left atrial chamber dimension is normal. Right Atria Right atrial chamber dimension is normal. Aortic Valve Aortic valve is not well visualized. There is mild aortic valve sclerosis. Pulmonic Valve Pulmonary valve is not well visualized. Mitral Valve The mitral valve has thickened leaflets. There is mild mitral valve regurgitation. Tricuspid Valve There is mild tricuspid valve regurgitation. Moderate pulmonary hypertension, estimated pulmonary arterial systolic pressure is 52 mmHg. Pericardium/Pleural The pericardium appears normal. Aorta The prox ascending aorta size is normal. Left Ventricular Outflow Tract Name Value Normal LVOT 2D LVOT Diameter 2.0 cm LVOT Doppler LVOT Peak Gradient 3 mmHg LVOT Mean Gradient 2 mmHg LVOT VTI 15 cm LVOT VTI/AV VTI Ratio 1.0 LVOT Stroke Volume 48 ml LVOT CO 3.3 l/min LVOT CI 1.9 l/min/m2 Pulmonic Valve Name Value Normal RVOT Doppler RVOT Peak Gradient 1 mmHg PV Doppler
[2019-12-09] MEDS: IPRATROPIUM BR 0.02% INH SOLN 0.5 MG/2.5 ML VIAL INHALATION ×2 (01:50→08:47)
[2019-12-09] MEDS: ALBUTEROL SULFATE NEB 2.5 MG/0.5 ML INH INHALATION ×2 (01:50→08:47)
[2019-12-09 04:14] LABS: Alveolar/Arterial O2 Gradient 153.4 mmHg; Base Excess ABG 2.3 mEq/l (+/-2.0); Carboxyhemoglobin 0.2 % THb (0-2.0); Fractional Inspired Oxygen 40 %; HCO3 ABG 24.7 mEq/l (22.0-26.0); Methemoglobin ABG 0.2 %THb (0-1.5); Oxygen Content ABG 13.6 %vol (16.0-22.0); Oxygen Saturation ABG 98.1 % (95.0-100.0); Oxyhemoglobin 96.8 % THb (90.0-100.0); PCO2 ABG 30.3 mmHg (35.0-45.0); PO2 FiO2 Ratio Arterial Blood 2.42 %; Reduced Hemoglobin 2.8 %THb (0-5.0); Total Hemoglobin 9.9 g/dL (12.0-18.0)
[2019-12-09 04:16] LABS: pH ABG 7.529 (7.350-7.450)
[2019-12-09 04:17] LABS: Modified Allen's Test Unable to perform; Site Drawn LEFT RADIAL
[2019-12-09 04:18] LABS: Arterial Blood Gas PEEP 5 cmH2O; Arterial Blood Gas Tidal Volume 450 ml; Arterial Blood Gas Vent Mode CMV; Arterial Blood Gas Ventilator rate 16 /MIN; Device VENTILATOR
[2019-12-09 04:36] LABS: Hematocrit 24.9 % (42.0-52.0); Hemoglobin 8.5 g/dL (14.0-18.0); Mean Corpuscular HGB Conc 34.1 g/dl (32-36); Mean Corpuscular Hemoglobin 26.8 pg (26-34); Mean Corpuscular Volume 78.5 fl (80-100); Mean Platelet Volume 10.1 fl (7.4-10.4); Platelet Count Result 177 k/mm3 (150-375); Red Blood Count 3.17 M/mm3 (4.6-6.20); Red Cell Distribution Width 16.3 % (11.5-14.5); White Blood Count 16.6 K/mm3 (4.5-10.0)
[2019-12-09 04:47] LABS: Partial Thromboplastin Time 56.9 SECONDS (22.3-36.8)
[2019-12-09 04:48] LABS: Estimated CRCL calculation 44 ml/min; Estimated Glomerular Filt Rate > 60; Lactic Acid Reflex 2.8 mmol/L (0.7-2.1)
[2019-12-09 04:57] LABS: Alanine Aminotransferase 96 U/L (4-50); Albumin Level 2.1 g/dL (3.5-5.1); Alkaline Phosphatase 144 U/L (38-126); Anion Gap 4 mmol/L (8-16); Aspartate Amino Transferase 101 U/L (17-59); Bilirubin,Total 0.3 mg/dL (0.2-1.3); Blood Urea Nitrogen 32 mg/dL (9-20); Carbon Dioxide 31 mmol/L (22-30); Chloride 95 mmol/L (98-107); Estimated CRCL calculation 44 ml/min; Estimated Glomerular Filt Rate > 60; Glucose 147 mg/dL (75-110); Phosphorus 1.6 mg/dL (2.5-4.5); Potassium 3.3 mmol/L (3.4-5.0); Sodium 130 mmol/L (137-145)
[2019-12-09 05:31] LABS: CRP 35.2 mg/dL (<1.0)
[2019-12-09] MEDS: DEXTROSE 10% 1,000 ML 60 ML IV CONT (05:34)
[2019-12-09] MEDS: HEPARIN SODIUM 5,000 UNITS/ML VIAL 2500 UNITS IV PUSH (05:42)
[2019-12-09] MEDS: HYDROCORTISONE SODIUM SUCCINATE 100 MG/2 ML VIAL IV PUSH (06:12)
[2019-12-09 07:32] LABS: Reflex Lactic Acid Yes or No Add Lactic
[2019-12-09] MEDS: ASPIRIN 325 MG TABLET FEED TUBE (09:40)
[2019-12-09] MEDS: PANTOPRAZOLE SODIUM IV 40 MG VIAL IV PUSH (09:40)
[2019-12-09] MEDS: HEPARIN SOD/D5W 100 UNITS/ML 25,000 UNITS/250 ML BAG 8 UNITS IV CONT (09:43)
[2019-12-09 10:19] LABS: Lactic Acid 2.4 mmol/L (0.7-2.1)
--- NOTE | 2019-12-09 11:25 | PCDIET ---
ICU Rounding Note: Patient is currently NPO. Tube feedings held yesterday for 400mL residual; now with leakage of gastric contents around g-tube site, per nursing. Family considering withdrawal of care. Recommend K+ and PO4 replacement, if medically appropriate. Last recorded weight is 66.5kg which is increased from last review. +I/O. Bowel Motility: BM x 2 today. Labs Reviewed: Hgb (8.5), Hct (24.9), Glu (141), K (3.3), [place] Ca (8.52), PO4 (1.6), Alb (2.1) Meds Noted: Vancomycin, Vasopressin, Albuterol, Maxipime, Fentanyl, Solu Cortef, Atrovent, Versed, Protonix, Phenylephrine Additional Notes: Bilateral hip and left heel ulcers documented. Following daily in ICU rounds. Assessing/reassessing every Monday/Monday.
[2019-12-09] MEDS: MORPHINE SULFATE 10 MG/ML AMP 5 MG IV PUSH (13:31)
[2019-12-09] MEDS: MORPHINE SULFATE 2 MG/ML INJ IV PUSH (15:56)
--- NOTE | 2019-12-09 16:02 | WPDINTPN ---
Progress Note: A&P Assessment and Plan (1) Peripheral vascular disease: Code(s): I73.9 - Peripheral vascular disease, unspecified Status: Acute Assessment and Plan: left foot cyanosis, cool to touch left lower extremity below the knee. - lactic acid persistently remains elevated likely secondary to left foot ischemia - Cardiology consulted, recommended arterial Dopplers, - continue aspirin - patient on heparin infusion - arterial Dopplers 12/06/2019 shows increased pressure gradients in the superficial femoral arteries, consistent with arterial occlusive disease. Tolerated tubal fluid left posterior tibial artery, anterior tibial artery and dorsalis pedis. (2) Acute respiratory failure with hypoxia: Code(s): J96.01 - Acute respiratory failure with hypoxia Status: Acute Assessment and Plan: acute respiratory failure likely related to pneumonia, - patient was intubated in the ER on 12/04/2019 - on CMV mode of ventilation, ABGs and chest x-ray reviewed, 50% FiO2 and peep of 5. - Chest x-ray and ABGs reviewed., ventilator adjusted - continue cefepime and vancomycin - Continue bronchodilators - on fentanyl and Versed infusion for sedation, maintain RASS of 0 to -2, daily sedation vacation (3) Septic shock: Code(s): A41.9 - Sepsis, unspecified organism; R65.21 - Severe sepsis with septic shock Status: Acute Assessment and Plan: septic shock related to hypovolemia, malnourishment, infection, pneumonia - patient adequately fluid-resuscitated - continue phenylephrine, maintain mean arterial pressures greater than 65 mmHg - patient on cefepime and vancomycin - blood cultures growing Klebsiella pneumonia sensitive to cefepime - sputum cultures negative - urine pneumococcal antigen was not detected - urine Legionella antigen pending (4) Community acquired pneumonia: Code(s): J18.9 - Pneumonia, unspecified organism Status: Acute Assessment and Plan: patient likely with community-acquired pneumonia, on antibiotics as above - continue Pulmozyme (5) BECKY (acute kidney injury): Code(s): N17.9 - Acute kidney failure, unspecified Status: Acute Assessment and Plan: acute kidney injury likely related to hypovolemia, septic shock, hypotension, pneumonia - creatinine normalized - on D10 IV fluids due to hypoglycemia - lactic acid lactic acid remains elevated likely secondary to ischemic foot, liver dysfunction due to septic shock, infection - replace potassium and phosphorus - Renal ultrasound done on 12/05/2019 showed no hydronephrosis of the right kidney or visualized portion of the largely obscured left kidney. 6 cm right renal cyst - continue to monitor renal function, electrolytes and urine output (6) Decubitus ulcer of left foot, unstageable: Code(s): L89.890 - Pressure ulcer of other site, unstageable Status: Acute Assessment and Plan: wounds on bilateral hips, coccyx, left heel - wound care to evaluate and manage - 12/05/2019: left foot x-ray without evidence of osteomyelitis (7) Person under investigation for COVID-19: Code(s): Z20.828 - Contact with and (suspected) exposure to other viral communicable diseases Status: Acute Assessment and Plan: patient febrile in the ED, bilateral infiltrates right greater than left - SARS-CoV-2 PCR IS NEGATIVE - OFF droplet, airborne, contact precautions/isolation (8) DVT prophylaxis: Code(s): Z29.9 - Encounter for prophylactic measures, unspecified Status: Acute Assessment and Plan: on heparin infusion (9) Dietary counseling and surveillance: Code(s): Z71.3 - Dietary counseling and surveillance Status: Acute Assessment and Plan: not tolerating tube feeds, secondary to high tube feed residuals stress ulcer prophylaxis: Protonix (10) Atrial fibrillation with RVR: Code(s): I48.91 - Unspecified at
[2019-12-10] VITALS: BP 81/45; PULSE 73; RESP 13; TEMP 36.2; O2SAT 86
[2019-12-10] MEDS: MORPHINE SULFATE 2 MG/ML INJ IV PUSH ×2 (00:35→05:55)
[2019-12-10 04:22] VITALS: BP 96/55; PULSE 90; RESP 12; TEMP 36.1; O2SAT 86
[2019-12-10 08:00] VITALS: BP 76/56; PULSE 116; RESP 13; TEMP 36.3
[2019-12-10 11:00] VITALS: RESP 12; O2SAT 86
--- NOTE | 2019-12-10 11:07 | PC.NURSE ---
This patient, Conrado Batres, was transferred to [ ] on 12/10/19 at 1107. Personal belongings sent with patient. Belongings list checked and signed with receiving [ ]. Report given to [ ]. Appropriate documentation sent with patient.
--- NOTE | 2019-12-10 11:07 | PC.NURSE ---
This patient, Conrado Batres, was transferred to [facility] on 12/10/19 at 1100. Personal belongings sent with patient. Report given to Vilma GALLEGO. Appropriate documentation sent with patient.
--- NOTE | 2019-12-10 11:39 | PCDIET ---
Nutrition Follow-Up Complete: Nutrition Diagnosis: Inadequate infusion of enteral nutrition related to critical illness as evidenced by NPO status. Nutrition Goal: Patient to meet estimated nutritional needs. Goal not met. Patient exubated and transitioned to comfort care. Diet is NPO. No new recommendations at this time; however, if plan of care changes and aggressive nutritional therapy is desired, consult RD for recommendations. Last recorded weight is 66.5 kg which is stable. Bowel Motility: Last documented BM on 12/09/19 x 1. Labs Reviewed: No new labs available. Meds Noted: Phenergan, Ativan, Morphine Additional Notes: Ulcers to left heel and right hip. Friction areas to left hip and buttock. No change in goal at this time. Will continue to monitor to ensure plan for comfort care remains. Nutrition Monitoring and Evaluation: Follow up every 3 days.
--- NOTE | 2019-12-10 13:43 | PM.IMPN ---
Progress Note: A&P Assessment and Plan (1) Septic shock: Code(s): A41.9 - Sepsis, unspecified organism; R65.21 - Severe sepsis with septic shock Status: Acute Assessment and Plan: blood cultures and urine cultures are pending. patient will be placed on broad-spectrum antibiotic coverage. Will discontinue Rocephin and has a throw and switch patient to cefepime and vancomycin. No broaden antibiotic coverage because the patient also has a necrotic foot wound which could also be contributing to his septic picture. Most likely due to pneumonia given the patient's history of dysphagia aspiration is suspected. However given [facility] in a [facility] facility COVID-19 must be ruled out. The patient was placed on droplet precautions. 12/10/19 13:43 patient 84 male resident of nursing patient was sent to emergency via EMS hypoxic he was seen and emergency department to protect the patient airways patient was intubated, is found to left lower extremity with ischemia and necrotic tissue patient is seen by vascular team and currently in the ICU intubated unable to provide any review of symptoms, discussed with social secretary patient is off sedation however patient is not responding and not follow simple instruction. on 12/08 patient son decided to withdraw care and patient was extubated and now out of ICU on medical floor, patient son is present in the room, patient has mild labor breathing, however patient is somnolent, will continue to monitor patient (2) Acute respiratory failure with hypoxia: Code(s): J96.01 - Acute respiratory failure with hypoxia Status: Acute Assessment and Plan: Due to pneumonia and septic shock. Patient's ABGs have been reviewed. Will titrate patient's FiO2 downward as tolerated. Continue ventilator tidal volume 400, peep of 5, rate 18 (3) Decubitus ulcer of left foot, unstageable: Code(s): L89.890 - Pressure ulcer of other site, unstageable Status: Acute Assessment and Plan: wound care consult. will check bedside Doppler for pedal and posterior tibial pulse (4) Acute renal failure: Qualifiers: Acute renal failure type: with acute tubular necrosis Qualified Code(s): N17.0 - Acute kidney failure with tubular necrosis Code(s): N17.9 - Acute kidney failure, unspecified Status: Acute Assessment and Plan: due to septic shock. repeat BMP in a.m.. Subjective Date/time seen: 12/10/19 13:43 patient 84 male resident of nursing patient was sent to emergency via EMS hypoxic he was seen and emergency department to protect the patient airways patient was intubated, is found to left lower extremity with ischemia and necrotic tissue patient is seen by vascular team and currently in the ICU intubated unable to provide any review of symptoms, discussed with social secretary patient is off sedation however patient is not responding and not follow simple instruction. on 12/08 patient son decided to withdraw care and patient was extubated and now out of ICU on medical floor, patient son is present in the room, patient has mild labor breathing, however patient is somnolent, will continue to monitor patient Review of Systems Review of Systems: ROS unobtainable: Yes unobtainable due to endotracheal tube Exam Narrative: Exam Narrative: elderly frail Const: General: comfortable and no acute distress HENMT: General nose exam: Normal nares present Other: ET tube in place Neck: Neck: supple Resp: Other: bilateral poor air entry and poor effort rhonchi Cardio: Rate: regular rate Rhythm: regular rhythm GI: Auscultation: normal bowel sounds Skin: General skin exam: normal color Neuro: Other: on vent off sedation not responding Extrem: Other: left lower extremity with a wound Psych: Other: patient on vent Objective Data Vital Signs Vital Signs: Vital Signs - 24 hr 12/09/19 14:00 12/09/19 1
[2019-12-10 16:51] VITALS: BP 86/35; PULSE 144; RESP 24; TEMP 38.3; O2SAT 97
[2019-12-10 20:39] VITALS: BP 86/42; PULSE 89; RESP 28; TEMP 38.1; O2SAT 95
[2019-12-11 05:49] VITALS: BP 110/83; PULSE 140; RESP 24; TEMP 36.9; O2SAT 92
--- NOTE | 2019-12-11 13:20 | PM.IMPN ---
Progress Note: A&P Assessment and Plan (1) Septic shock: Code(s): A41.9 - Sepsis, unspecified organism; R65.21 - Severe sepsis with septic shock Status: Acute Assessment and Plan: blood cultures and urine cultures are pending. patient will be placed on broad-spectrum antibiotic coverage. Will discontinue Rocephin and has a throw and switch patient to cefepime and vancomycin. No broaden antibiotic coverage because the patient also has a necrotic foot wound which could also be contributing to his septic picture. Most likely due to pneumonia given the patient's history of dysphagia aspiration is suspected. However given patient is currently in a halfway facility COVID-19 must be ruled out. The patient was placed on droplet precautions. 12/11/19 13:20 patient 84 male resident of nursing patient was sent to emergency via EMS hypoxic he was seen and emergency department to protect the patient airways patient was intubated, is found to left lower extremity with ischemia and necrotic tissue patient is seen by vascular team and currently in the ICU intubated unable to provide any review of symptoms, discussed with final cigar and box examiner patient is off sedation however patient is not responding and not follow simple instruction. on 12/08 patient son decided to withdraw care and patient was extubated and now out of ICU on medical floor, patient has mild labor breathing, however patient is somnolent, will continue to monitor patient (2) Acute respiratory failure with hypoxia: Code(s): J96.01 - Acute respiratory failure with hypoxia Status: Acute Assessment and Plan: Due to pneumonia and septic shock. Patient's ABGs have been reviewed. Will titrate patient's FiO2 downward as tolerated. Continue ventilator tidal volume 400, peep of 5, rate 18 (3) Decubitus ulcer of left foot, unstageable: Code(s): L89.890 - Pressure ulcer of other site, unstageable Status: Acute Assessment and Plan: wound care consult. will check bedside Doppler for pedal and posterior tibial pulse (4) Acute renal failure: Qualifiers: Acute renal failure type: with acute tubular necrosis Qualified Code(s): N17.0 - Acute kidney failure with tubular necrosis Code(s): N17.9 - Acute kidney failure, unspecified Status: Acute Assessment and Plan: due to septic shock. repeat BMP in a.m.. Subjective Date/time seen: 12/11/19 13:20 patient 84 male resident of nursing patient was sent to emergency via EMS hypoxic he was seen and emergency department to protect the patient airways patient was intubated, is found to left lower extremity with ischemia and necrotic tissue patient is seen by vascular team and currently in the ICU intubated unable to provide any review of symptoms, discussed with final cigar and box examiner patient is off sedation however patient is not responding and not follow simple instruction. on 12/08 patient son decided to withdraw care and patient was extubated and now out of ICU on medical floor, patient has mild labor breathing, however patient is somnolent, will continue to monitor patient Review of Systems Review of Systems: ROS unobtainable: Yes unobtainable due to medical condition Exam Narrative: Exam Narrative: elderly frail Const: General: comfortable and no acute distress HENMT: General nose exam: Normal nares present Other: ET tube in place Neck: Neck: supple Resp: Other: bilateral poor air entry and poor effort rhonchi Cardio: Rate: regular rate Rhythm: regular rhythm GI: Auscultation: normal bowel sounds Skin: General skin exam: normal color Neuro: Other: on vent off sedation not responding Extrem: Other: left lower extremity with a wound Psych: Other: patient on vent Objective Data Vital Signs Vital Signs: Vital Signs - 24 hr 12/10/19 16:51 12/10/19 20:39 12/11/19 05:49 Temperature 101 F H 100.5 F H 98.5 F Pulse
[2019-12-11 18:04] VITALS: BP 105/48; PULSE 128; RESP 30; TEMP 37.1; O2SAT 96
[2019-12-11 20:28] VITALS: BP 96/74; PULSE 110; RESP 24; TEMP 36.9; O2SAT 94
--- NOTE | 2019-12-11 22:51 | PC.NURSE ---
At 2130, when staff checked on patient, he was found not breathing and upon further assessment there was no heartbeat. Verified with second RN. Notified appropriate personel. Family notified.
--- NOTE | 2020-01-08 08:32 | PM.DDS ---
Discharge Sum: Prov Provider Primary care physician: UNKNOWN,DOCTOR Admitting provider: Licha Virk DO Consults: 12/05/19 Wound/ET Consult Routine Reason for Consult:: left foot unstageable decubitus ulcer 12/05/19 00:22 Consult to Physician Routine Comment: Consulting Provider: Thor Dwyer call center trainer/MD group to consult: Sergo Reason for consultation: severe sepsis, oleg due to sepsis, pna, resp failure Has provider been notified: Yes 12/06/19 10:28 Consult to Physician Routine Comment: Consulting Provider: Julio Merino call center trainer/MD group to consult: Dr. Merino Reason for consultation: ischemic leftlower extremity Has provider been notified: Yes Discharge Sum: Diag Contributing Factors (1) Atrial fibrillation with RVR: (2) Peripheral vascular disease: (3) Community acquired pneumonia: (4) Acute renal failure: (5) Decubitus ulcer of left foot, unstageable: (6) Acute respiratory failure with hypoxia: (7) Septic shock: Discharge Sum: Summary Date and Time Date of admission: 12/05/19 00:19 Date of : 12/11/19 Time of : 21:30 Summary Details: patient 84 male resident of nursing patient was sent to emergency via EMS hypoxic he was seen and emergency department to protect the patient airways patient was intubated, is found to left lower extremity with ischemia and necrotic tissue patient is seen by vascular team and currently in the ICU intubated unable to provide any review of symptoms, discussed with rental car porter patient is off sedation however patient is not responding and not follow simple instruction. on 12/08 patient son decided to withdraw care and patient was extubated and now out of ICU on medical floor, patient has mild labor breathing, however patient is somnolent, patient on 12/11/2019 at 21:30 Additional Data Confirmation of as documented by pronouncing clinician: no pulse, no respirations, no heart sounds and pupils fixed and dilated Family: contacted Attending/PCP notified?: Yes Attending physician: Tamir Jones MD Was code activated?: No Autopsy requested?: No disability insurance claim examiner notified?: Yes Organ bank notified?: Yes Advance directives: No Hospice patient?: No
== END 2019-12-11 21:30 | disposition expired | DRG 871 ==
LOC: ANHED 12-05 00:25 → ANHICU 12-05 01:46 → ANH3MED 12-10 21:47 → ANHICU 12-13 11:25
PROVIDERS: Family Medicine; Internal Medicine; Admitting Provider Internal Medicine; Emergency Provider Emergency Medicine; Visit Provider Family Medicine
DX: A41.9 Sepsis, unspecified organism (principal); J18.9 Pneumonia, unspecified organism; R65.21 Severe sepsis with septic shock; J96.01 Acute respiratory failure with hypoxia; E43 Unspecified severe protein-calorie malnutrition; N17.0 Acute kidney failure with tubular necrosis; I48.91 Unspecified atrial fibrillation; Z86.73 Personal history of transient ischemic attack (TIA), and cerebral infarction without residual deficits; K21.9 Gastro-esophageal reflux disease without esophagitis; I73.9 Peripheral vascular disease, unspecified; Z68.22 Body mass index [BMI] 22.0-22.9, adult; I10 Essential (primary) hypertension; E78.5 Hyperlipidemia, unspecified; L89.890 Pressure ulcer of other site, unstageable; Z20.828 Contact with and (suspected) exposure to other viral communicable diseases
CPT/HCPCS: 31500; 36415; 36556; 36600; 51702; 70450; 71045; 73620; 76775; 80048; 80053; 81001; 82375; 82565; 82805; 83050; 83605; 83735; 83880; 84100; 84132; 85025; 85027; 85610; 85730; 86140; 87040; 87070; 87077; 87186; 87205; 87449; 87635; 87899; 93005; 93306; 93925; 94003; 94640; 96365; 96366; 96367; 96368; 96375; 99291; A9270; C9113; C9803; J0131; J0282; J0456; J0610; J0692; J0696; J1160; J1644; J1720; J1885; J2060; J2250; J2270; J2370; J2704; J3010; J3370; J3475; J3480; J7030; J7040; J7042; J7060; J7070; J7120; U0003